=== PATIENT | female | born 1935 | race Caucasian/White ===

== ENCOUNTER 2017-08-29 22:11 | Inpatient (IN) | payer OTHER, MEDICAID ==
[~2017-08-29] VITALS: Ht 160 cm; Wt 57.6 kg
[~2017-08-29 22:11] MED LIST: A & D OINT45 GM TP; ALTACE5 MG PO; Atorvastatin Calcium PO; GLUCOTROL5 MG PO; MOTRIN800 MG PO; Metoprolol Tartrate PO; NORVASC5 MG PO; XARELTO20 MG PO
[2017-08-29 22:14] VITALS: BP 215/90
--- NOTE | 2017-08-29 22:19 | NUR ---
BIBA TO ER BED 7
--- NOTE | 2017-08-29 22:20 | NUR ---
82/F BIBA C/O RT ARM AND RT FACE NUMBNESS X 2 DAYS AGO AT (1600). MILD WEAKNESS NOTED TO PARKER PROFESSIONAL APPLICATION DESIGNER STRENGTH. PT AAO X1 TO NAME. PATIENT STATES PAIN OF 0/10 AT THIS TIME; VSS; PATIENT POSITIONED FOR COMFORT; HOB ELEVATED; BEDRAILS UP X2; BED DOWN. ER MD MADE AWARE OF PT STATUS.
--- NOTE | 2017-08-29 22:55 | NUR ---
PT TAKEN TO CT
--- NOTE | 2017-08-29 23:10 | NUR ---
BP 196/96, HR 81, PT AWAKE AND APPEARS COMFORTABLE. MD MADE AWARE OF HIGH BP
[2017-08-29] MEDS ORDERED: hydrALAZINE 20 MG/ML VIAL IVP ONE (23:25)
[2017-08-29] MEDS ORDERED: ENALAPRILAT 2.5 MG/2 ML VIAL IVP ONE (23:25)
[2017-08-29] MEDS ORDERED: ASPIRIN 81 MG TAB.CHEW PO ONE (23:40)
--- NOTE | 2017-08-29 23:45 | NUR ---
KAREN CARE PROVIDED. PT CLEANSED WITH WARM WATER AND NO RINSE CLEANSER. DRY VICKI PADS APPLIED UNDER PATIENT. PT TOLERATED WELL. WARM BLANKET PROVIDED. PT PLACED IN POSITION OF COMFORT. ALL NEEDS ADDRESSED.
--- NOTE | 2017-08-30 00:11 | NUR ---
BP 143/76, HR 86, MD MADE AWARE. PT AWAKE AND COMFORTABLE
--- NOTE | 2017-08-30 01:18 | NUR ---
VSS, PT AWAKE, ALERT AND COMFORTABLE. TRANSFERRED VIA GURNEY, Patient will be admitted to care of [facility]RE[facility]. Admited to . Will go to room. Belongings list completed. Report to CORNELIA MARTINEZ.
[2017-08-30 01:20] VITALS: BP 151/71
[2017-08-30] MEDS ORDERED: ACETAMINOPHEN 325 MG TAB PO PRN (01:20)
[2017-08-30] MEDS ORDERED: HYDROcodone/APAP 7.5/325 MG 1 TAB PO PRN (01:20)
[2017-08-30] MEDS ORDERED: MORPHINE SULFATE 2 MG/ML SYR IVP PRN (01:20)
[2017-08-30] MEDS ORDERED: DOCUSATE SODIUM 100 MG GELCAP PO PRN (01:20)
--- NOTE | 2017-08-30 01:20 | NUR ---
PATIENT ADMITTED TO THE UNIT FROM THE ER VIA GURNEY. PATIENT IS AWAKE, ALERT AND ORIENTED. NO SIGNS AND SYMPTOMS OF DISTRESS NOTED. NO COMPLAINTS OF PAIN AT THIS TIME. IV SITE NOTED ON LEFT AC, SALINE LOCKED. BED IN LOWEST POSITION, SIDE RAILS UP AND CALL LIGHT WITHIN REACH. WILL CONTINUE TO MONITOR
[2017-08-30] MEDS ORDERED: IBUPROFEN 800 MG TAB PO SCH (01:40)
--- NOTE | 2017-08-30 01:40 | NUR ---
PATIENT SEEN BY DR. KWON
[2017-08-30] MEDS ORDERED: METOPROLOL 25 MG TAB PO SCH (01:55)
[2017-08-30] MEDS: NACL 0.9% 1,000 ML IV SCH (02:18)
[2017-08-30 04:00] VITALS: BP 144/85
--- NOTE | 2017-08-30 04:50 | NUR ---
DR. KWON NOTIFIED OF PATIENT'S MAGNESIUM LEVEL OF 1.7, ORDERS RECEIVED.
[2017-08-30] MEDS ORDERED: MAG SULF 2000 MG/WATER PREMIX 50 ML IV SCH ×2 (06:00→09:00)
[2017-08-30] MEDS: glipiZIDE 5 MG TAB PO SCH (06:27)
--- NOTE | 2017-08-30 07:19 | NUR ---
PATIENT REPORT GIVEN AT BEDSIDE TO MORNING NURSE. PATIENT IS IN STABLE CONDITION
[2017-08-30] MEDS ORDERED: DEXTROSE 50% 50 ML SYR IVP PRN (07:20)
--- NOTE | 2017-08-30 07:20 | NUR ---
RECEIVED PT REPORT AT BEDSIDE FROM NIGHT NURSE. PATIENT IS AAOX2 AND SHOWS NO S/S OF ACUTE DISTRESS ON ROOM AIR. PT DENIES PAIN. PATIENT IV NOTED ON THE L AC WITH IVF'S INFUSING WELL. SKIN IS DRY AT BLE; OTHERWISE, SKIN IS INTACT. PATIENT ON TELE MONITOR. DISCUSSED WITH PT POC FOR TODAY HOWEVER PT NEEDS CONSTANT REINFORCEMENT ABOUT CARE. THE BED IS LOWERED WITH CALL LIGHT WITHIN REACH. FALL RISK PROTOCOL IS IN PLACE WITH SIGNS POSTED AND BED ALARM ACTIVATED.
[2017-08-30] MEDS: BLOOD GLUCOSE MONITORING 1 DEV DEV FS SCH ×4 (07:30→20:20)
[2017-08-30 07:43] VITALS: BP 134/72
--- NOTE | 2017-08-30 08:06 | NUR ---
SPOKE WITH DR BAUTISTA REGARDING ELEVATED TROPONIN. TO SEE PT.
[2017-08-30] MEDS ORDERED: hePARIN / DEXT 5% PREMIX 250 ML IV SCH (09:15)
[2017-08-30] MEDS ORDERED: HEPARIN PER PHARMACY MC PRN (09:15)
--- NOTE | 2017-08-30 10:00 | NUR ---
STUDENT NURSE ADMINISTERED SCHEDULED MEDICATIONS WITH INSTRUCTOR. PT TOLERATED ACTIVITY WELL. WILL CONTINUE TO MONITOR.
[2017-08-30] MEDS: RAMIPRIL 5 MG CAP PO SCH (10:02)
[2017-08-30] MEDS: amLODIPine 5 MG TAB PO SCH (10:04)
[2017-08-30] MEDS: METOPROLOL 25 MG TAB PO SCH ×2 (10:04→21:00)
[2017-08-30] MEDS: RIVAROXABAN 10 MG TAB PO SCH (10:08)
--- NOTE | 2017-08-30 10:15 | NUR ---
PT LUNCH WILL BE HELP FOR US PROCEDURE. PT IS AWARE AND VERBALIZED UNDERSTANDING.
[2017-08-30] MEDS: INSULIN LISPRO SLIDING SCALE 100 UNITS/ML VIAL SUBQ PRN ×2 (10:22→20:23)
--- NOTE | 2017-08-30 10:35 | NUR ---
NOTIFIED DR BAUTISTA OF PT HR OF 41. PT WAS SLEEPING AND SHOWS NO S/S OF ACUTE DISTRESS, DENIES PAIN, DENIES SOB. PT HR WENT UP TO 75 NOW.
--- NOTE | 2017-08-30 11:55 | NUR ---
PT IS SLEEPING AND SHOWS NO S/S OF ACUTE DISTRESS. BED IS IN LOW POSITION WITH CALL LIGHT WITHIN REACH. WILL CONTINUE TO MONITOR.
[2017-08-30 12:00] VITALS: BP 122/67
[2017-08-30] MEDS: VITAMIN A/VITAMIN D OINT 113 GM TUBE TP SCH (13:01)
[2017-08-30] MEDS: ONDANSETRON 4 MG/2 ML VIAL IM/IVP PRN (14:00)
--- NOTE | 2017-08-30 14:00 | NUR ---
PT C/O NAUSEA. ADMINISTERED ZOFRAN 4 MG IVP.
--- NOTE | 2017-08-30 14:50 | NUR ---
PT DENIES FEELING NAUSEOUS. PATIENT SHOWS NO S/S OF ACUTE DISTRESS ON ROOM AIR. BED IN LOW POSITION WITH CALL LIGHT WITHIN REACH. WILL CONTINUE TO MONITOR.
--- NOTE | 2017-08-30 15:30 | NUR ---
PT BLOOD SUGAR IS 62. GAVE PT APPLE JUICE. WILL REASSESS IN 15 MIN.
--- NOTE | 2017-08-30 15:45 | NUR ---
PT IS ASYMPTOMATIC, PT DENIES FEELING SHAKINESS, DIAPHORETIC, TACHYCARDIC. BS IS NOW 82. US WAS CALLED TO SEE WHEN THEY WILL ARRIVE SO PT CAN BEGIN TO EAT. US STATED THEY WILL COME IN 30 MIN.
[2017-08-30 16:00] VITALS: BP 126/67
--- NOTE | 2017-08-30 16:35 | NUR ---
PT IS BEING SEEN BY [employer] TECH. PT SHOWS NO S/S OF ACUTE DISTRESS ON ROOM AIR. WILL CONTINUE TO MONITOR.
--- NOTE | 2017-08-30 17:40 | NUR ---
PT IS SITTING UP AND EATING DINNER. PT SHOWS NO S/S OF ACUTE DISTRESS ON ROOM AIR. PT DENIES PAIN AND SOB. PT TOLERATING MECHANICAL SOFT DIET WELL.
--- NOTE | 2017-08-30 19:10 | NUR ---
GAVE REPORT TO NIGHT NURSE AT BEDSIDE. PT IS AAOX2 AND SHOWS NO S/S OF ACUTE DISTRESS ON ROOM AIR. PT DENIES PAIN AND SOB. PT ENDORSED IN STABLE CONDITION.
--- NOTE | 2017-08-30 19:17 | NUR ---
PATIENT REPORT RECEIVED FROM MORNING NURSE. PATIENT IS SITTING UP IN BED, RESTING COMFORTABLY. NO SIGNS AND SYMPTOMS OF DISTRESS NOTED. NO COMPLAINTS OF PAIN AT THIS TIME. IV SITE NOTED ON LEFT AC, IVF INFUSING WELL. BED IN MORALES'S POSITION, SIDE RAILS UP AND CALL LIGHT WITHIN REACH. WILL CONTINUE TO MONITOR.
[2017-08-30 20:00] VITALS: BP 111/45
[2017-08-30] MEDS: ATORVASTATIN 20 MG TAB PO SCH (20:26)
--- NOTE | 2017-08-30 20:30 | NUR ---
CHECKED ON PATIENT, PATIENT IS ASLEEP IN BED. EASY TO AROUSE. NO SIGNS AND SYMPTOMS OF DISTRESS NOTED. WILL CONTINUE TO MONITOR.
--- NOTE | 2017-08-30 21:00 | NUR ---
NOTIFIED DR. KWON OF PATIENT'S HEART RHYTHM STRIPS AND BRADYCARDIA
[2017-08-31] VITALS: BP 123/50
--- NOTE | 2017-08-31 | NUR ---
CHECKED ON PATIENT, PATIENT IS ASLEEP. NO SIGNS AND SYMPTOMS OF DISTRESS NOTED. BED IN LOWEST POSITION, SIDE RAILS UP AND CALL LIGHT WITHIN REACH. WILL CONTINUE TO MONITOR.
[2017-08-31] MEDS: VITAMIN A/VITAMIN D OINT 113 GM TUBE TP SCH ×2 (00:33→13:01)
[2017-08-31] MEDS: NACL 0.9% 1,000 ML IV SCH (00:55)
[2017-08-31 04:00] VITALS: BP 134/57
[2017-08-31] MEDS: glipiZIDE 5 MG TAB PO SCH (05:50)
[2017-08-31] MEDS: BLOOD GLUCOSE MONITORING 1 DEV DEV FS SCH ×4 (06:37→20:28)
--- NOTE | 2017-08-31 07:28 | NUR ---
PATIENT REPORT GIVEN TO MORNING NURSE AT BEDSIDE. PATIENT IN STABLE CONDITION.
--- NOTE | 2017-08-31 07:30 | NUR ---
RECEIVED REPORT FROM BLACKSMITH FARM NURSE, PT IS RESTING IN BED IN SEMI FOWLERS POSITION, PT IS A/OX3, PT IS ON BEDREST, AMBULATES WITH ASSIST, IV IS ON THE LT AC, PATENT, INTACT, FLUSHING WELL, NO S/S OF RESPIRATORY DISTRESS OR DISCOMFORT NOTED, DISCUSSED PLAN OF CARE WITH PT, PT VERBALIZED UNDERSTANDING, SAFETY/FALL PRECAUTIONS ARE IN PLACE, CALL LIGHT IS WITHIN REACH, WILL CONTINUE TO MONITOR.
[2017-08-31 08:00] VITALS: BP 158/68
--- NOTE | 2017-08-31 08:46 | NUR ---
PATIENT HAS BEEN SCREENED AND CATEGORIZED MODERATE NUTRITION RISK. PATIENT WILL BE SEEN WITHIN 3-5 DAYS OF ADMISSION. 09/01/17-09/03/[address]
[2017-08-31] MEDS: amLODIPine 5 MG TAB PO SCH (09:13)
[2017-08-31] MEDS: METOPROLOL 25 MG TAB PO SCH ×2 (09:14→20:31)
[2017-08-31] MEDS: RAMIPRIL 5 MG CAP PO SCH (09:14)
--- NOTE | 2017-08-31 09:15 | NUR ---
DUE MEDICATIONS GIVEN, PT TOLERATED WELL, PATIENT'S DAUGHTER (NELLY) IS AT BEDSIDE, CALL LIGHT WITHIN REACH.
[2017-08-31] MEDS: RIVAROXABAN 10 MG TAB PO SCH (09:19)
--- NOTE | 2017-08-31 11:45 | NUR ---
PICK PULLING MACHINE OPERATOR IS AT PATIENT'S BEDSIDE AT THIS TIME.
[2017-08-31 12:00] VITALS: BP 160/67
--- NOTE | 2017-08-31 12:25 | NUR ---
1130 MET WITH PT AT BEDSIDE WITH DAUGHTERS NELLY AND STEVE PRESENT. PER NELLY PT LIVES WITH HER SON RENU IN A RENTED GARAGE. NELLY AND STEVE STATED THAT THEY PLAN ON FINDING PT ANOTHER PLACE TO LIVE THE LIVING CONDITIONS ARE VERY POOR. STATED THAT PT DOES NOT HAVE ADEQUATE TOILET AND WHEN TOILET FLUSHED THE FLOOR GETS WET AND ALSO SHE DOES NOT HAVE ACCESS TO A CLEAN KITCHEN AREA. NELLY SHOWED PHOTOGRAPHS SHE HAS TAKEN OF THE LIVING AREA AND THE PLACE APPEARED CLUTTERED AND UNCLEAN. STATED THAT PT DOES GET $880.0 SSI MONTHLY. STATES THAT RENU IS PTS CAREGIVER BUT THEY HAVE FOUND THAT PT HAS NOT BEEN GETTING HER MEDICATIONS. INQUIRED WHO PTS PCP WAS AND SHE STATED THAT CURRENTLY PT DOES NOT HAVE ONE HER PCP RECENTLY RETIRED. OFFERED TO PROVIDE A LIST BUT STEVE STATED THAT SHE IS PLANNING ON TAKING PT TO HER OWN PHYSICIAN. PT ALSO HAS DIFFICULTY WITH TRANSPORTATION. ALSO DISCUSSED WITH BOTH DAUGHTERS THAT THEY MAY CONSIDER HAVING PT COMPLETE AN AD AND THEY STATED THEY DO HAVE THE FORM THAT WAS PROVIDED TO THEM ON ADMISSION AND THEY ARE GOING TO REVIEW AND DISCUSS A FAMILY AND URGE PT TO COMPLETE THE FORM. DISCUSSED WITH THEM PT'S NEEDS ON DISCHARGE SNF VS HH. DID PROVIDE NELLY WITH A COPY OF THE HH RESOURCE LIST. PROVED THEM BOTH WITH DCM CONTACT INFORMATION IF THEY HAVE ANY FURTHER QUESTIONS.
--- NOTE | 2017-08-31 14:27 | NUR ---
PHYSICAL THERAPY WORKING WITH PT AT THIS TIME.
[2017-08-31 16:00] VITALS: BP 113/54
--- NOTE | 2017-08-31 16:30 | NUR ---
PT IS RESTING IN BED USING HIS DVD PLAYER, KORINA HUTCHINS WITHIN REACH. Addendum: 08/31/17 at 1823 by Nirali Moses RN WRONG PT ENTRY.
--- NOTE | 2017-08-31 19:20 | NUR ---
ENDORSED PT TO PRE SALES SYSTEMS ENGINEER NURSE FOR CONTINUITY OF CARE, PT STABLE AT THIS TIME.
--- NOTE | 2017-08-31 19:21 | NUR ---
RECEIVED REPORT FROM AM NURSE. PT IS AOX3, WITH FAMILY AT BEDSIDE. WITH RESPIRATIONS CLEAR AND UNLABORED. NO COMPLAINTS OF PAIN AT THIS TIME. WITH AN IV ON THE LEFT AC 22 G, INTACT AND PATENT. SKIN IS INTACT. INITIAL ASSESSMENT DONE. REORIENTED PT TO THE UNIT, VERBALIZED UNDERSTANDING. WILL CONTINUE TO MONITOR. ALL NEEDS ATTENDED. CALL LIGHT WITHIN REACH. SAFETY CHECKS IN PLACE.
[2017-08-31 20:00] VITALS: BP 158/77
--- NOTE | 2017-08-31 20:28 | NUR ---
DUE MEDS GIVEN, WELL TOLERATED BY PATIENT. WILL CONTINUE TO MONITOR FOR ANY CHANGES.
[2017-08-31] MEDS: ATORVASTATIN 20 MG TAB PO SCH (20:31)
[2017-08-31] MEDS: INSULIN LISPRO SLIDING SCALE 100 UNITS/ML VIAL SUBQ PRN (20:33)
[2017-09-01] VITALS: BP 141/63
--- NOTE | 2017-09-01 | NUR ---
VITAL SIGNS STABLE. NO S/S OF DISTRESS. NO COMPLAINTS OF PAIN. WILL CONTINUE TO MONITOR FOR ANY CHANGES.
[2017-09-01] MEDS: NACL 0.9% 1,000 ML IV SCH ×2 (00:34→08:59)
[2017-09-01] MEDS: VITAMIN A/VITAMIN D OINT 113 GM TUBE TP SCH ×2 (01:03→13:06)
[2017-09-01 04:00] VITALS: BP 128/69
--- NOTE | 2017-09-01 04:00 | NUR ---
VITAL SIGNS STABLE. NO COMPLAINTS OF PAIN. NO S/S OF DISTRESS. WILL CONTINUE TO MONITOR FOR ANY CHANGES.
[2017-09-01] MEDS: glipiZIDE 5 MG TAB PO SCH (05:36)
--- NOTE | 2017-09-01 05:39 | NUR ---
DID NOT GIVE 0630 MEDICATION DUE TO THE BLOOD SUGAR OF 102. WILL CONTINUE TO MONITOR FOR CHANGES.
[2017-09-01] MEDS: BLOOD GLUCOSE MONITORING 1 DEV DEV FS SCH ×4 (07:01→21:27)
--- NOTE | 2017-09-01 07:20 | NUR ---
ENDORSED TO AM SHIFT NURSE FOR CONTINUITY OF CARE, IN STABLE CONDITION.
--- NOTE | 2017-09-01 07:25 | NUR ---
RECEIVED PT REPORT AT BEDSIDE, PT ASLEEP BUT EASILY AROUSABLE, NO S/S OF DISTRESS NOTED. PT ON TELE MONITORING. BED LOWERED, HEAD ELEVATED, CALL LIGHT WITHIN REACH. WILL CONTINUE TO MONITOR.
[2017-09-01 08:00] VITALS: BP 154/77
[2017-09-01] MEDS: RAMIPRIL 5 MG CAP PO SCH (08:53)
[2017-09-01] MEDS: amLODIPine 5 MG TAB PO SCH (08:54)
[2017-09-01] MEDS: RIVAROXABAN 10 MG TAB PO SCH (08:55)
[2017-09-01] MEDS: METOPROLOL 25 MG TAB PO SCH ×2 (08:55→21:24)
--- NOTE | 2017-09-01 14:31 | NUR ---
[facility] Patient will go to room 21-A and the number to call report [phone] and for transportation to use [facility] and to inform [facility] to [facility] per Michelle. Will be anticipating discharge tomorrow. 09/02/17. Dr. Gray will be the doctor to follow.
--- NOTE | 2017-09-01 15:30 | NUR ---
PHYSICAL THERAPY CO-SIGN The Physical Therapy Progress Notes documented by Cyber Forensics Analyst have been reviewed. Reviewed/Co-Signed by: Kelsie Luu PT Documentation Done by:GIN MARSH SURFACE WATER MANAGER POC REVIEWED W/ SURFACE WATER MANAGER; TRY STAIR MGMT NEXT TX IF ABLE. Addendum: 09/01/17 at 1531 by Kelsie Luu PT Amended: Links added.
[2017-09-01 16:00] VITALS: BP 136/74
--- NOTE | 2017-09-01 19:28 | NUR ---
PT REPORT GIVEN AT BEDSIDE. PT ENDORSED TO THE NEXT SHIFT. PT IN STABLE CONDITION.
--- NOTE | 2017-09-01 19:29 | NUR ---
RECEIVED HANDOFF REPORT FROM AM RN. PATIENT AWAKE IN BED. PATIENT A&OX3. PATIENT DENIES PAIN. IV SITE PATENT AND INTACT. NO SIGNS OR SYMPTOMS OF ACUTE DISTRESS NOTED. CALL LIGHT WITHIN REACH. WILL CONTINUE TO MONITOR.
[2017-09-01 20:04] VITALS: BP 154/72
[2017-09-01] MEDS: ATORVASTATIN 20 MG TAB PO SCH (21:24)
--- NOTE | 2017-09-01 21:45 | NUR ---
PATIENT AWAKE IN BED WATCHING TV. PATIENT DENIES PAIN. NO SIGNS OR SYMPTOMS OF ACUTE DISTRESS NOTED. CALL LIGHT WITHIN REACH. WILL CONTINUE TO MONITOR.
--- NOTE | 2017-09-02 00:07 | NUR ---
PATIENT AWAKE IN BED WATCHING TV. PATIENT ANNA PAIN. NO SIGNS OR SYMPTOMS OF ACUTE DISTRESS NOTED. CALL LIGHT WITHIN REACH. WILL CONTINUE TO MONITOR.
[2017-09-02] MEDS: VITAMIN A/VITAMIN D OINT 113 GM TUBE TP SCH ×2 (01:10→11:34)
--- NOTE | 2017-09-02 02:42 | NUR ---
PATIENT RESTING. NO SIGNS OR SYMPTOMS OF ACUTE DISTRESS NOTED. CALL LIGHT WITHIN REACH. WILL CONTINUE TO MONITOR.
--- NOTE | 2017-09-02 04:59 | NUR ---
PATIENT RESTING IN BED. CHANGED BED LINENS AND CLEANED UP PATIENT DUE TO INCONTINENCE. PATIENT DENIES PAIN. NO SIGNS OR SYMPTOMS OF ACUTE DISTRESS NOTED. CALL LIGHT WITHIN REACH. WILL CONTINUE TO MONITOR.
[2017-09-02] MEDS: BLOOD GLUCOSE MONITORING 1 DEV DEV FS SCH ×4 (06:50→21:25)
[2017-09-02] MEDS: glipiZIDE 5 MG TAB PO SCH (06:51)
--- NOTE | 2017-09-02 07:18 | NUR ---
ENDORSED PLAN OF CARE TO AM RN. PATIENT IN STABLE CONDITION. NO SIGNS OR SYMPTOMS OF ACUTE DISTRESS NOTED. SAFETY MEASURES ENSURED. CALL LIGHT WITHIN REACH.
--- NOTE | 2017-09-02 07:20 | NUR ---
RECEIVED PT REPORT AT BEDSIDE, PT IS AWAKE AND ALERT. NO S/S OF DISTRESS NOTED. BED LOWERED, HEAD ELEVATED, CALL LIGHT WITHIN REACH. WILL CONTINUE TO MONITOR.
[2017-09-02 08:00] VITALS: BP 186/76
[2017-09-02] MEDS: RAMIPRIL 5 MG CAP PO SCH (08:25)
[2017-09-02] MEDS: RIVAROXABAN 10 MG TAB PO SCH (08:26)
[2017-09-02] MEDS: METOPROLOL 25 MG TAB PO SCH ×2 (08:26→21:26)
[2017-09-02] MEDS: amLODIPine 5 MG TAB PO SCH (08:27)
[2017-09-02 09:00] VITALS: BP 145/77
--- NOTE | 2017-09-02 09:00 | NUR ---
BP REASSESSED. BP 145/77. NO S/S OF DISTRESS NOTED. PT DENIES PAIN.
--- NOTE | 2017-09-02 11:45 | NUR ---
BLOOD SUGAR 55. PATIENT AWAKE AND ALERT. PATIENT IS ASYMPTOMATIC. D50 GIVEN PER PROTOCOL. NOTIFIED DR GTZ. WILL CONTINUE TO MONITOR
--- NOTE | 2017-09-02 12:15 | NUR ---
BLOOD SUGAR RECHECKED. BLOOD SUGAR 190
--- NOTE | 2017-09-02 12:30 | NUR ---
ENTRY FOR 09/01/17 SPOKE WITH DAUGHTER NELLY AND INFORMED HER THAT PT AND PHYSICIAN ARE RECOMMENDING SNF FOR SHORT TERM REHAB PRIOR TO GOING HOME. PER PT SHE IS IN AGREEMENT. PER NELLY SHE AND HER SISTER STEVE ARE ALSO IN AGREEMENT AND REQUEST A SNF IN THE [place]. PROVIDED HER WITH TWO SNFS IN [facility] AND [facility]. PER STEVE SHE WOULD PREFER [facility] IT IS CLOSER TO HER HOME. PROVIDED HER WITH THE ADDRESS AND ENCOURAGED HER TO TOUR FACILITY.
--- NOTE | 2017-09-02 12:46 | NUR ---
0950 RECEIVED VM FROM STEVE PT'S DAUGHTER STATING THAT SHE TOURED [facility] AND REALLY LIKED THE FACILITY AND THEY ARE IN AGREEMENT WITH THE TRANSFER. PER DORIAN PT WILL GO TO ROOM 21A INFORMED HER MOST LIKELY TRANSFER WILL BE TOMORROW PER PHYSICIAN.
--- NOTE | 2017-09-02 14:08 | NUR ---
09/02/17 RD INITIAL ASSESSMENT COMPLETED PLEASE REFER TO NUTRITION ASSESSMENT UNDER CARE ACTIVITY FOR ESTIMATED NUTRITIONAL NEEDS. 1. CONTINUE 60G CONSISTENT CARBOHDYRATE, MECHANICAL SOFT DIET 2. CONTINUE TO ENCOURAGE INCREASED PO INTAKE TO TOLERANCE 3. PROVIDE NUTRITION THERAPY EDUCATION NEEDED 4. RD TO FOLLOW-UP 3-5 DAYS, MODERATE RISK ALLAN RAPHAEL RD
[2017-09-02 16:00] VITALS: BP 179/85
--- NOTE | 2017-09-02 17:00 | NUR ---
SPOKE WITH PATIENT'S SON RENU AND WAS TOLD THAT THEY DO NOT AGREE WITH THE PLAN FOR THE PATIENT TO BE TRANSFERRED TO A DIFFERENT FACILITY FOR REHAB. MADE DR GTZ AWARE
--- NOTE | 2017-09-02 17:50 | NUR ---
MADE DR GTZ AWARE OF PATIENT'S BP
[2017-09-02] MEDS ORDERED: amLODIPine 5 MG TAB PO ONE (18:30)
--- NOTE | 2017-09-02 19:17 | NUR ---
ENDORSED PLAN OF CARE TO PM SHIFT. PT REPORT GIVEN AT BEDSIDE. PATIENT IN STABLE CONDITION. NO S/S OF ACUTE DISTRESS NOTED. CALL LIGHT WITHIN REACH.
--- NOTE | 2017-09-02 19:18 | NUR ---
RECEIVED HANDOFF REPORT FROM AM RN. PATIENT AWAKE AND ALERT IN BED TALKING TO FAMILY ON THE PHONE, A&OX3. PATIENT DENIES PAIN. IV SITE PATENT AND INTACT. NO SIGNS OR SYMPTOMS OF ACUTE DISTRESS NOTED. CALL LIGHT WITHIN REACH. WILL CONTINUE TO MONITOR.
[2017-09-02] MEDS: ATORVASTATIN 20 MG TAB PO SCH (21:26)
--- NOTE | 2017-09-02 21:44 | NUR ---
PATIENT AWAKE AND ALERT IN BED. PATIENT REFUSED TO TAKE PM MEDS. EDUCATION PROVIDED. PATIENT DENIES PAIN. NO SIGNS OR SYMPTOMS OF ACUTE DISTRESS NOTED. CALL LIGHT WITHIN REACH. WILL CONTINUE TO MONITOR.
--- NOTE | 2017-09-02 22:48 | NUR ---
PATIENT REPORTS "I THINK IM GOING TO HAVE A HEART ATTACK". VITAL SIGNS TAKEN, BP 167/91, HR 95, O2 100, RR 18 NON LABORED. PATIENT REPORTS CHEST PAIN BUT REFUSES CLARIFICATION OF RADIATION AND SEVERITY. TELE BOX IN PLACE. RESIDENT AWARE. CALLED PATIENTS SON AFTER PATIENT STATED WANTING TO SPEAK WITH HIM. CALL LIGHT WITHIN REACH. WILL CONTINUE TO MONITOR.
--- NOTE | 2017-09-02 23:25 | NUR ---
PATIENT RESTING IN BED. PATIENT DENIES CHEST PAIN. TELE BOX IN PLACE. NO SIGNS OR SYMPTOMS OF ACUTE DISTRESS NOTED. CALL LIGHT WITHIN REACH. WILL CONTINUE TO MONITOR.
[2017-09-03] VITALS: BP 146/82
[2017-09-03] MEDS: VITAMIN A/VITAMIN D OINT 113 GM TUBE TP SCH ×2 (00:08→11:21)
[2017-09-03] MEDS: NACL 0.9% 1,000 ML IV SCH (00:34)
--- NOTE | 2017-09-03 01:42 | NUR ---
PATIENT RESTING IN BED. PATIENT DENIES PAIN. NO SIGNS OR SYMPTOMS OF ACUTE DISTRESS NOTED. CALL LIGHT WITHIN REACH. WILL CONTINUE TO MONITOR.
--- NOTE | 2017-09-03 04:39 | NUR ---
PATIENT ON TELE. SHOWS SR/PAC'S WITH POSSIBLE 2ND DEGREE HEART BLOCK. MD AWARE. EKG ORDERED. PATIENT RESTING IN BED. NO SIGNS OR SYMPTOMS OF ACUTE DISTRESS NOTED. PATIENT DENIES PAIN. CALL LIGHT WITHIN REACH. WILL CONTINUE TO MONITOR.
[2017-09-03] MEDS: glipiZIDE 5 MG TAB PO SCH (06:02)
--- NOTE | 2017-09-03 06:04 | NUR ---
PATIENT REFUSED TO TAKE AM MEDICATION. STATES "MY DAUGHTER SAID NOT TO PUT ANYTHING IN MY MOUTH UNTIL SHE GETS HERE". PATIENT A&OX2. PATIENT DENIES PAIN. NO SIGNS OR SYMPTOMS OF ACUTE DISTRESS NOTED. CALL LIGHT WITHIN REACH. WILL CONTINUE TO MONITOR.
[2017-09-03] MEDS: BLOOD GLUCOSE MONITORING 1 DEV DEV FS SCH ×4 (06:46→21:30)
[2017-09-03] MEDS ORDERED: hydrALAZINE 20 MG/ML VIAL IVP PRN (07:30)
--- NOTE | 2017-09-03 07:36 | NUR ---
ENDORSED PLAN OF CARE TO AM RN. PATIENT IN STABLE CONDITION. PATIENT DENIES PAIN. NO SIGNS OR SYMPTOMS OF ACUTE DISTRESS NOTED. SAFETY MEASURES ENSURED. CALL LIGHT WITHIN REACH.
--- NOTE | 2017-09-03 07:37 | NUR ---
RECEIVED BEDSIDE REPORT FROM BUSINESS EXCELLENCE MANAGER RN. PT AWAKE AND ALERT, NO SIGNS OF ACUTE DISTRESS. BOWEL SOUNDS ACTIVE IN ALL 4 QUADRANTS. SKIN INTACT. IV PATENT AND ASYMPTOMATIC. BEDREST. PT ON ROOM AIR. PT DENIES PAIN. RE-ORIENTED TO HOSPITAL AND TO UNIT, PT VERBALIZES UNDERSTANDING, HOWEVER UNABLE TO RETURN INSTRUCTIONS. BED IN LOW POSITION WITH BILATERAL HALF SIDE RAILS UP, BED ALARM ON, CALL LIGHT WITHIN REACH. WILL CONTINUE TO MONITOR.
[2017-09-03 08:00] VITALS: BP 208/98
--- NOTE | 2017-09-03 08:00 | NUR ---
PATIENT BLOOD PRESSURE 208/98 AND PULSE 65. REPORTED TO DR HUBER, RECEIVED NEW ORDERS. NOTED, WILL CARRY OUT.
--- NOTE | 2017-09-03 08:30 | NUR ---
PT REFUSING TO TAKE ALL MEDICATIONS PATIENT STATED THAT DAUGHTER TOLD HER NOT TO TAKE ANYTHING. CALLED PT DAUGHTER WHO SPOKE WITH HER MOTHER ON THE PHONE, PATIENT AGREED TO TAKING ALL MORNING MEDICATIONS.
[2017-09-03] MEDS: amLODIPine 5 MG TAB PO SCH (08:42)
[2017-09-03] MEDS: RAMIPRIL 5 MG CAP PO SCH (08:43)
[2017-09-03] MEDS: METOPROLOL 25 MG TAB PO SCH ×2 (08:43→21:19)
[2017-09-03] MEDS: RIVAROXABAN 10 MG TAB PO SCH (08:53)
[2017-09-03] MEDS ORDERED: AMLODIPINE BESYL5 M1 PO (09:08)
[2017-09-03] MEDS ORDERED: LOPRESSOR25 MG PO (09:08)
--- NOTE | 2017-09-03 09:42 | NUR ---
PATIENT VITAL SIGNS 161/87 AND PULSE 106. WILL CONTINUE TO MONITOR.
--- NOTE | 2017-09-03 09:45 | NUR ---
PATIENT DAUGHTER AND SON AT BEDSIDE ARGUING. SON WANTED TO TAKE MOTHER HOME HOWEVER DAUGHTER WANTED HER TO DISCHARGE TO REHAB FACILITY THAT SVETLANA, FINANCE CONTROLLER SPOKE TO HER ABOUT. INFORMED MIRANDA BRAVO RN, AND SVETLANA. AFTER SPEAKING WITH FAMILY AND PATIENT, PATIENT DECIDED TO STAY UNTIL TRANSFERRED TO REHAB FACILITY. WILL CONTINUE TO MONITOR.
[2017-09-03 10:00] VITALS: BP 152/87
--- NOTE | 2017-09-03 10:00 | NUR ---
PATIENT VITAL SIGNS 152/87, PULSE 104, RESPIRATIONS 18, 0/10 PAIN AND TEMPERATURE 101.9. APPLIED ICE PACKS AND REMOVED BLANKETS. WILL ADMINISTER TYLENOL AND RE-ASSESS. DR GTZ MADE AWARE.
[2017-09-03] MEDS ORDERED: ACETAMINOPHEN325 M2 PO (10:21)
--- NOTE | 2017-09-03 11:10 | NUR ---
PT NOTE 800 CHART REVIEWED. PER RN, Pt's BP IS HIGH AND WILL MEDICATE Pt; WILL CHECK ON Pt LATER FOR PT TX. 1000 CHECKED BP 152/87, HR 104 BUT TEMP 101.9; RN TO APPLY ICE AND MEDICATE Pt. 1100 Pt HAS BEEN MEDICATED BY RN WITH TYLENOL BUT STILL HAS FEVER; HOLD PT TX FOR TODAY PER RN. PVE(2)
--- NOTE | 2017-09-03 11:18 | NUR ---
PATIENT BLOOD PRESSURE 141/73, PULSE 98, TEMPERATURE 100.1, OXYGEN SATURATION 98%, RESPIRATIONS 18, PATIENT DENIES PAIN. COOLING MEASURES INCLUDING ICE PACKS ARE IN PLACE. PATIENT GIVEN TYLENOL APPROXIMATELY 1 HOUR AGO, WILL CONTINUE TO MONITOR.
--- NOTE | 2017-09-03 11:22 | NUR ---
RECEIVED DISCHARGE ORDER FROM DR GTZ, NOTED, WILL CARRY OUT.
--- NOTE | 2017-09-03 11:29 | NUR ---
CM NOTE PATIENT TO BE PICKED UP BY [facility] VIA WHEELCHAIR GOING TO [facility], RM 21A. ETA 1500.
[2017-09-03 12:00] VITALS: BP 126/70
[2017-09-03] MEDS: INSULIN LISPRO SLIDING SCALE 100 UNITS/ML VIAL SUBQ PRN ×3 (12:27→21:29)
--- NOTE | 2017-09-03 13:30 | NUR ---
PATIENT BLOOD PRESSURE 109/56, PULSE 74, OXYGEN SATURATION 97%, RESPIRATIONS 18, DENIES PAIN, TEMPERATURE 99.0. DR GTZ MADE AWARE. PUT NEW ICE PACKS ON PATIENT. WILL CONTINUE TO MONITOR.
--- NOTE | 2017-09-03 14:00 | NUR ---
DISCHARGE ORDER CANCELLED BY DR GTZ, NOTED.
--- NOTE | 2017-09-03 15:24 | NUR ---
RECEIVED NEW ORDERS FOR AM LABS FROM DR GTZ, NOTED, WILL CARRY OUT.
[2017-09-03 16:00] VITALS: BP 108/64
--- NOTE | 2017-09-03 17:30 | NUR ---
PT UPRIGHT IN BED RESTING, NO SIGNS OF ACUTE DISTRESS. PT GRANDSON AT BEDSIDE. BED IN LOW POSITION, BED ALARM ON, BILATERAL HALF SIDE RAILS UP, CALL LIGHT WITHIN REACH. WILL CONTINUE TO MONITOR.
--- NOTE | 2017-09-03 19:05 | NUR ---
PT AWAKE AND ALERT, NO SIGNS OF ACUTE DISTRESS. ENDORSED TO TRAINING GENERALIST NURSE FOR CONTINUITY OF CARE.
--- NOTE | 2017-09-03 19:30 | NUR ---
RECEIVED REPORT FROM DAY RN AT BEDSIDE, PATIENT IS AAOX2, FORGETFUL. ON ROOM AIR, NO SOB OR SIGN OF DISTRESS. IV TO LEFT AC PATENT AND INTACT, SKIN INTACT. PATIENT DENIES PAIN AT THIS TIME. DISCUSSED PLAN OF CARE WITH PATIENT, PATIENT VERBALIZED UNDERSTANDING. SAFETY MEASURES CHECKED, BED ALARM ON. CALL LIGHT WITHIN REACH. WILL CONTINUE TO MONITOR.
[2017-09-03 20:00] VITALS: BP 156/83
[2017-09-03] MEDS: ATORVASTATIN 20 MG TAB PO SCH (21:19)
--- NOTE | 2017-09-03 21:30 | NUR ---
PM MEDS ADMINISTERED, PATIENT TOLERATED WELL , RESTING IN BED, CALL LIGHT WITHIN REACH. WILL CONTINUE TO MONITOR
--- NOTE | 2017-09-03 22:50 | NUR ---
PATIENT RESTING IN BED, NO DISTRESS NOTED CALL LIGHT WITHIN REACH. WILL CONTINUE TO MONITOR
[2017-09-04] VITALS: BP 135/74
--- NOTE | 2017-09-04 00:04 | NUR ---
VITAL SIGNS STABLE, NO DISTRESS NOTED, CALL LIGHT WITHIN REACH. WILL CONTINUE TO MONITOR
[2017-09-04] MEDS: NACL 0.9% 1,000 ML IV SCH (00:34)
[2017-09-04] MEDS: VITAMIN A/VITAMIN D OINT 113 GM TUBE TP SCH ×2 (01:14→13:47)
--- NOTE | 2017-09-04 02:50 | NUR ---
PATIENT SLEEPING, NO DISTRESS, CALL LIGHT WITHIN REACH. WILL CONTINUE TO MONITOR
[2017-09-04 04:00] VITALS: BP 127/57
--- NOTE | 2017-09-04 04:15 | NUR ---
VITAL SIGNS STABLE, NO DISTRESS NOTED, CALL LIGHT WITHIN REACH. WILL CONTINUE TO MONITOR
[2017-09-04] MEDS: BLOOD GLUCOSE MONITORING 1 DEV DEV FS SCH ×4 (06:12→21:00)
[2017-09-04] MEDS: glipiZIDE 5 MG TAB PO SCH (06:12)
--- NOTE | 2017-09-04 07:24 | NUR ---
ENDORSED PATIENT TO DAY RN AT BEDSIDE, PATIENT IN STABLE CONDITION
--- NOTE | 2017-09-04 07:25 | NUR ---
RECEIVED REPORT FROM CAREGIVER ASSISTED LIVING NURSE PT IS RESTING IN BED, A/OX2, BEDREST, IV ON THE LEFT AC, PATENT, INTACT, FLUSHING WELL, PT IS ON ROOM AIR, NO S/S OF RESPIRATORY DISTRESS OR DISCOMFORT NOTED, DISCUSSED PLAN OF CARE WITH PT, PT VERBALIZED UNDERSTANDING, SAFETY/FALL PRECAUTIONS ARE IN PLACE, CALL LIGHT IS WITHIN REACH, WILL CONTINUE TO MONITOR.
[2017-09-04 08:00] VITALS: BP 123/56
[2017-09-04] MEDS: METOPROLOL 25 MG TAB PO SCH ×2 (08:52→21:00)
[2017-09-04] MEDS: RAMIPRIL 5 MG CAP PO SCH (08:52)
[2017-09-04] MEDS: amLODIPine 5 MG TAB PO SCH (08:52)
[2017-09-04] MEDS: RIVAROXABAN 10 MG TAB PO SCH (08:53)
[2017-09-04] MEDS: ONDANSETRON 4 MG/2 ML VIAL IM/IVP PRN (10:48)
--- NOTE | 2017-09-04 11:20 | NUR ---
PHYSICAL THERAPY IS WORKING WITH PT AT THIS TIME.
[2017-09-04 12:00] VITALS: BP 103/43
--- NOTE | 2017-09-04 13:38 | NUR ---
SPOKE WITH DORIAN FROM [facility]. SHE SAID THIS PATIENT CAN GO TO ROOM 21A UNDER DR. MORA AND [facility] WILL PAY FOR [facility]. I CALLED [facility] AND SET UP TIME FOR 6:30P.M. PHONE FOR [facility] [phone]. CARA MARTINEZINSURANCE PROFESSIONAL NURSE AWARE.
--- NOTE | 2017-09-04 15:00 | NUR ---
PATIENT'S SON RENU CALLED FOR UPDATE, HE WAS NOTIFIED BY CHARGE NURSE THE PATIENT WOULD BE TRANSFERRING TO [facility], I ALSO CALLED THE PATIENT'S DAUGHTER ALIZA, I REACHED HER VOICEMAIL I LET HER KNOW I WAS CALLING FROM [facility] TO LET HER KNOW SHE WAS BEING TRANSFERRED TO [facility] AT 1830.
--- NOTE | 2017-09-04 15:25 | NUR ---
CALLED [facility] AND GAVE REPORT TO MICHELLE SANDOVAL.
[2017-09-04] MEDS ORDERED: XARELTO15 MG PO (15:27)
[2017-09-04 16:00] VITALS: BP 100/51
--- NOTE | 2017-09-04 17:00 | NUR ---
HERE TO LASTING ROOM MACHINE OPERATOR THE PATIENT, PATIENT REFUSING TO LEAVE TO FACILITY, I CALLED THE PATIENT'S SON (RENU) I LET HIM KNOW THE PATIENT WAS REFUSING TO LEAVE, RENU STATED HE WAS GOING TO CALL HIS SISTER MAXWELL RIGGS , TO HAVE PICK HER UP. RENU SAID HE WAS IN [place]. Addendum: 09/04/17 at 2040 by Nirali Moses RN WAS HERE TO PICK PT AT 1900, NOT 1700
--- NOTE | 2017-09-04 19:00 | NUR ---
PREMIER HERE TO BIGHT MAKER THE PATIENT, PATIENT REFUSING TO LEAVE TO FACILITY, I CALLED THE PATIENT'S SON (RENU) I LET HIM KNOW THE PATIENT WAS REFUSING TO LEAVE, RENU STATED HE WAS GOING TO CALL HIS SISTER MAXWELL RIGGS , TO HAVE PICK HER UP. RENU SAID HE WAS IN [place].
--- NOTE | 2017-09-04 19:40 | NUR ---
CALLED [employer] [facility]UC[facility] AND EXPLAINED THE PATIENT WAS REFUSING TO LEAVE AND WAS BEING COMBATIVE, PER [employer], IF THE PT DID NOT WANT TO BE TRANSFERRED TO THE FACILITY, FAMILY WAS NEED TO COME AND .NET PROGRAMMER THE PATIENT TO TAKE HER HOME.
--- NOTE | 2017-09-04 19:45 | NUR ---
DR. BRASHER IN PATIENT'S ROOM SPEAKING WITH PT. PT STILL REFUSING TO LEAVE TO FACILITY.
--- NOTE | 2017-09-04 20:45 | NUR ---
I CALLED THE PATIENT'S DAUGHTER MAXWELL RIGGS , I REACHED HER VOICEMAIL, I LET HER KNOW I WAS CALLING FROM [facility] TO VERIFY THAT SHE WAS GOING TO SENIOR MANAGER THE PATIENT I WAS TOLD BY THE PATIENT'S SON, RENU.
--- NOTE | 2017-09-04 20:48 | NUR ---
PT ENDORSED TO TELEPHONE TECHNICIAN NURSE FOR CONTINUITY OF CARE. PT STABLE AT THIS TIME.
--- NOTE | 2017-09-04 20:49 | NUR ---
RECEIVED REPORT FROM AM NURSE. PT IS AOX4, ABLE TO MAKE NEEDS KNOWN. WITH RESPIRATIONS CLEAR AND UNLABORED. NO COMPLAINTS OF PAIN AT THIS TIME. PT IS CURRENTLY ON THE PHONE, REFUSING VITAL SIGNS. WILL CONTINUE TO MONITOR. ALL NEEDS ATTENDED. AWAITING FOR DAUGHTER TO COME AND PICK THE PATIENT.
--- NOTE | 2017-09-04 20:49 | NUR ---
REFUSED VITAL SIGNS, IS AGITATED. EDUCATED THE PATIENT BUT STILL REFUSED AND YELLED SAYING SHE DOES NOT WANT ANYTHING DONE LIKE VITALS OR GIVEN ANY MEDICATIONS.
[2017-09-04] MEDS: ATORVASTATIN 20 MG TAB PO SCH (21:00)
--- NOTE | 2017-09-04 21:07 | NUR ---
REFUSED DUE MEDS, EDUCATED TO THE PATIENT THE BENEFITS OF THE MEDICATION. STILL REFUSED.
--- NOTE | 2017-09-04 22:15 | NUR ---
PATIENT LEFT WITH FAMILY VIA WHEELCHAIR. PERSONAL BELONGINGS BROUGHT OVER WITH PATIENT.
[2017-09-05] MEDS ORDERED: CLINICAL MONITORING MC SCH (09:00)
--- NOTE | 2017-09-08 20:33 | NUR ---
ENTRY FOR 09/07/17 1146 RECEIVED COMMUNICATION FROM DORIAN AT [facility] INQUIRING STATUS OF PT ADMISSION PT DID NOT ADMIT ON 09/04 PLANNED. INFORMED HER I WOULD FOLLOW UP WITH FAMILY. CALL PLACED TO PT'S DAUGHTER NELLY TO INQUIRE WHERE PT HAD DISCHARGED TO IT WAS IMPLIED BY RENU THAT HE WAS TAKING PT TO [facility]. PER NELLY HER BROTHER RENU HAD PICKED PT UP AND HAD TAKEN HER BACK TO THEIR RESIDENCE. NELLY STATED THAT HER BROTHER HAD CALLED HER YESTERDAY TO ASK HOW HE COULD OBTAIN PT'S MEDICATION. PER NELLY SEARS WAS OPPOSED TO PT GOING TO SNF AND HAD TAKEN PT HOME AND SHE HAD VOICED HER CONCERN TO HIM THAT THE PLAN WA FOR PT TO GO TO SNF AND THAT NOW PT HAD NOT BEEN RECEIVING HER MEDICATIONS. SHE STATED THAT SHE AND HER SISTER STEVE WANTED TO HELP HER MOTHER FIND MORE SUITABLE LIVING ARRANGEMENTS PT IS LIVING IN A RENTED SPACE THAT IS A GARAGE AND QUESTION HER BROTHERS MOTIVES FOR TAKING PT BACK TO THAT ENVIRONMENT. . SHE STATED THAT SHE AND HER SISTER STEVE HAD PLANNED THAT PT AFTER HER STAY IN SNF WOULD GO TO STEVE'S HOME BUT HER BROTHER WAS OPPOSED TO THATCALL PLACED TO RENU AND INQUIRED HOW PT WAS AND IF SHE WAS RECEIVING HER MEDICATIONS THAT SHE NEEDED. RENU STATED THAT HE HAD PICKED PT UP WITH HIS SISTER MAXWELL ON 09/04 FROM [facility] AND THAT PT HAD STATED SHE DID NOT WANT TO GO TO SNF. HE DID STATE THAT HE HAD PTS MEDICATIONS THAT SHE HAD PREVIOUSLY BEEN ON BUT DID NOT HAVE ANY MORE LEFT. INSTRUCTED RENU THAT IT WAS IMPORTANT THAT PT HAVE THE MEDICATIONS THAT SHE HAD BEEN ON WHILE HOSPITALIZED AND THAT IT WAS IMPLIED TO THE HOSPITAL STAFF THAT HE WAS GOING TO TRANSPORT PT TO [facility] ON 09/04 WHEN HE PICKED HER UP. HE STATED "SHE WANTED TO GO HOME. I HAVE BEEN TAKING CARE OF MY MOTHER AND I KNOW MY SISTERS DON'T AGREE". DISCUSSED WITH HIM THE CONCERN THAT PT NEEDS MEDICATION TO KEEP HER B/P UNDER CONTROL AND THAT PER A PREVIOUS CONVERSATION PT DOES NOT CURRENTLY HAVE A PCP AND ASKED IF HE WAS GOING TO PURSUE GETTING A PCP FOR PT AND HOW WOULD HE WOULD OBTAIN THE REQUIRED MEDICATIONS SHE NEEDS. RENU SAID HE WOULD FOLLOW UP HE HAS ALWAYS TAKEN CARE OF HER. INFORMED HIM THAT THE PHYSICIANS WHO HAD TREATED PT IN HOSPITAL COULD BE CONTACTED FOR FOLLOW UP. RENU STATED THAT HE WOULD FOLLOW UP. 09/08/17 RECEIVED VM FROM DAUGHTER STEVE REQUESTING CALL BACK. 1400 SPOKE WITH STEVE AND SHE STATED THAT PT WAS IN AGREEMENT TO BE ADMITTED TO [facility] AND SHE HAD TALKED TO THE FACILITY AND THEY HAD A BED AVAILABLE AND WOULD ACCEPT PT AND THAT SHE WAS AT THE FACILITY AT THIS TIME WITH PT FOR ADMISSION. INFORMED HER THAT I WOULD FOLLOW UP WITH DR MORA THE PHYSICIAN WHO HAD BEEN ASSIGNED TO TAKE CARE OF HER AND PROVIDE UPDATED INFORMATION. DR MORA CONTACTED AND INFORMED THAT THE RESULT OF THE BLOOD CULTURE OBTAINED ON 09/03 WAS POSITIVE AND THAT A COPY OF THE MICRO WOULD BE FAXED TO [facility]. CALL PLACED TO DORIAN AT [facility] AND CONFIRMED THAT PT HAD BEEN ADMITTED AND INFORMED HER THAT RESULT OF THE BLOOD CULTURE WAS FAXED AND DR MORA HAD BEEN UPDATED ON THE CULTURE REPORT AND OF PT'S ADMISSION TO [facility].
== END 2017-09-04 22:15 | DRG 56 ==
LOC: MED 22:11 → MTU 08-30 01:19
PROVIDERS: ADMIT Family Medicine Sports Medicine; ATTEND Family Medicine Sports Medicine
DX: G30.9 Alzheimer's disease, unspecified (principal); G93.41 Metabolic encephalopathy; N17.0 Acute kidney failure with tubular necrosis; I50.43 Acute on chronic combined systolic (congestive) and diastolic (congestive) heart failure; I67.4 Hypertensive encephalopathy; D68.59 Other primary thrombophilia; N18.3 Chronic kidney disease, stage 3 (moderate); I24.9 Acute ischemic heart disease, unspecified; I13.0 Hypertensive heart and chronic kidney disease with heart failure and stage 1 through stage 4 chronic kidney disease, or unspecified chronic kidney disease; I16.1 Hypertensive emergency; I42.9 Cardiomyopathy, unspecified; F02.80 Dementia in other diseases classified elsewhere, unspecified severity, without behavioral disturbance, psychotic disturbance, mood disturbance, and anxiety; E11.22 Type 2 diabetes mellitus with diabetic chronic kidney disease; I48.0 Paroxysmal atrial fibrillation; D53.9 Nutritional anemia, unspecified; E02 Subclinical iodine-deficiency hypothyroidism; E11.51 Type 2 diabetes mellitus with diabetic peripheral angiopathy without gangrene; B96.89 Other specified bacterial agents as the cause of diseases classified elsewhere; R80.9 Proteinuria, unspecified; I25.10 Atherosclerotic heart disease of native coronary artery without angina pectoris; Z88.6 Allergy status to analgesic agent; Z90.2 Acquired absence of lung [part of]; Z79.01 Long term (current) use of anticoagulants; Z79.899 Other long term (current) drug therapy

== ENCOUNTER 2017-10-22 22:38 | Inpatient (IN) | payer OTHER, MEDICAID ==
[~2017-10-22] VITALS: Ht 134.6 cm; Wt 59.4 kg
[~2017-10-22 22:38] MED LIST changes: -A & D OINT45 GM TP; +ACET-1182 PO; +AD45 TP; -ALTACE5 MG PO; +AMLO5TAB4 PO; +GLIP5TAB4 PO; -GLUCOTROL5 MG PO; +IBUP-974 PO; +METO25TA PO; -MOTRIN800 MG PO; -Metoprolol Tartrate PO; -NORVASC5 MG PO; +RIVA15TA1 PO; -XARELTO20 MG PO
--- NOTE | 2017-10-22 22:38 | NUR ---
PT KAIA ALS. TAKEN TO BED 2
[2017-10-22 22:43] VITALS: BP 205/105
--- NOTE | 2017-10-22 22:49 | NUR ---
Dr. Klein evaluating patient at bedside.
--- NOTE | 2017-10-22 22:50 | NUR ---
BIBA C/O HIGH BLOOD PRESSURE FOR 2 DAYS, AND DIS NOT TAKE HER MEDICATION AND CAN NOT FIND IT.PATIENT ALERT AWAKE .
--- NOTE | 2017-10-22 23:22 | NUR ---
PT TAKEN TO CT
--- NOTE | 2017-10-22 23:34 | NUR ---
PT RETURN FROM CT
[2017-10-22 23:55] LABS: BASOPHILS # (AUTO) 0.5 K/uL (0.00-0.22); BASOPHILS % (AUTO) 4.9 % (0.0-2.0); EOSINOPHILS # (AUTO) 0.5 K/uL (0-0.4); EOSINOPHILS % (AUTO) 4.5 % (0.0-4.0); HEMATOCRIT 33.1 % (36-48); HEMOGLOBIN 10.8 g/dL (12.0-16.0); LYMPHOCYTES # (AUTO) 1.1 K/uL (2.5-16.5); LYMPHOCYTES % (AUTO) 11.1 % (20.5-51.1); MEAN CORPUSCULAR HEMOGLOBIN 32 pg (27-31); MEAN CORPUSCULAR HGB CONC 33 g/dL (33-37); MEAN CORPUSCULAR VOLUME 97 fL (80-94); MONOCYTES % (AUTO) 9.7 % (1.7-9.3); NEUTROPHILS # (AUTO) 7.1 K/uL (1.8-7.7); NEUTROPHILS % (AUTO) 69.8 % (42.2-75.2); PLATELET COUNT (AUTO) 243 K/uL (140-450); RED BLOOD CELL COUNT(AUTO) 3.41 MIL/uL (4.20-5.40); RED CELL DISTRIBUTION WIDTH 14.3 % (11.6-13.7); WHITE BLOOD COUNT (AUTO) 10.2 K/uL (4.8-10.8)
[2017-10-23 00:14] LABS: CARBON DIOXIDE 24.4 mmol/L (21-32); CHLORIDE 110 mmol/L (98-107); CREATININE 2.1 mg/dL (0.6-1.3); GLUCOSE 99 mg/dL (74-106); POTASSIUM 4.4 mmol/L (3.5-5.1); SODIUM SERUM 145 mmol/L (136-145); UREA NITROGEN, BLOOD 43 mg/dL (7-18)
[2017-10-23 00:20] LABS: ALBUMIN 3.6 g/dL (3.4-5.0); ASPARTATE AMINOTRANSFERASE 20 U/L (15-37); PROTHROMBIN TIME 10.1 secs (10.8-13.4); TOTAL BILIRUBIN 0.5 mg/dL (0.0-1.0)
[2017-10-23] MEDS ORDERED: FUROSEMIDE 20 MG/2 ML VIAL IVP ONE (00:40)
[2017-10-23] MEDS ORDERED: NITROGLYCERIN 2% 1 GM PKT TP ONE (00:40)
[2017-10-23] MEDS ORDERED: hydrALAZINE 20 MG/ML VIAL IVP ONE (00:40)
--- NOTE | 2017-10-23 00:45 | NUR ---
MEDICATED PER ERMDS ORDER, PATIENT TOLERATED WELL.
[2017-10-23 01:50] LABS: APPEARANCE,URINE SL CLOUDY (CLEAR); BILIRUBIN,URINE NEGATIVE (NEGATIVE); BLOOD, URINE NEGATIVE (NEGATIVE); COLOR,URINE YELLOW (YELLOW); LEUKOCYTE ESTERASE ,URINE 2+ (NEGATIVE); NITRITE, URINE NEGATIVE (NEGATIVE); PH,URINE 5.5 (5.0-9.0); UGLUCOSE NEGATIVE (NEGATIVE)
--- NOTE | 2017-10-23 01:50 | NUR ---
ALL RESULTS BACK AND NOTED BY ERMD AND FOR ADMISSION.
[2017-10-23] MEDS ORDERED: ACETAMINOPHEN 325 MG TAB PO PRN (01:55)
[2017-10-23] MEDS ORDERED: HYDROcodone/APAP 7.5/325 MG 1 TAB PO PRN (01:55)
[2017-10-23] MEDS ORDERED: ONDANSETRON 4 MG/2 ML VIAL IVP PRN (01:55)
--- NOTE | 2017-10-23 02:03 | NUR ---
Patient will be admitted to care of DR. MUÑOZ. Admited to TELEMETRY. Will go to room 124 A. Belongings list completed.
--- NOTE | 2017-10-23 02:04 | NUR ---
REPORT GIVEN TO TERESA MICHELLE.
[2017-10-23 02:05] LABS: RBC,URINE 0-5 (RARE) /HPF (0-5); WBC,URINE 0-5 (RARE) /HPF (0-5)
[2017-10-23] MEDS ORDERED: FUROSEMIDE 20 MG/2 ML VIAL IVP SCH (02:15)
--- NOTE | 2017-10-23 02:21 | NUR ---
RECEIVED FROM ER PER SHER AWAKE AND ALERT. NO SOB. DENIES PAIN AT THIS TIME. CALL LIGHT WITH IN REACH. ORIENTED TO ROOM AND CARE GIVERS. TELEMETRY MONITORING. PT. ORIENTED TO RAPID RESPONSE MECHANISM. AFEBRILE. NO EDEMA NOTED. SKIN INTACT. ABLE TO VERBALIZE WELL IN CHILEAN. BED ALARM ON RT HX. DEMENTIA . CTAB. IVF SITE TO LFA #20 WITH GOOD BLOOD RETURN.
[2017-10-23 02:28] LABS: CHOL/HDL RATIO 2.1 (1-4.5); FREE T4 (FREE THYROXINE) 1.13 ng/dL (0.76-1.46); THYROID STIMULATING HORMONE 5.63 uIU/mL (0.34-3.74)
[2017-10-23 03:17] VITALS: BP 171/77
--- NOTE | 2017-10-23 03:27 | NUR ---
PT. ENCOURAGED TO GO TO SLEEP. SEEN BY RESIDENT MEDICAL STUDENT ON DUTY. NOTED PT. HAVE HISTORY OF FORGETFULNESS. CALL LIGHT WITH IN REACH. BED ALARM ON.
[2017-10-23] MEDS ORDERED: DEXTROSE 50% 50 ML SYR IVP PRN (04:05)
[2017-10-23] MEDS: NACL 0.9% 1,000 ML IV SCH ×2 (04:29→16:21)
--- NOTE | 2017-10-23 05:00 | NUR ---
SLEEPING IN AND OUT. WAKES UP EASILY. CALL LIGHT WITH IN REACH. ENCOURAGED TO SLEEP RT NIGHT TIME.
[2017-10-23] MEDS: BLOOD GLUCOSE MONITORING 1 DEV DEV FS SCH ×4 (06:09→20:50)
[2017-10-23] MEDS: glipiZIDE 5 MG TAB PO SCH (06:11)
--- NOTE | 2017-10-23 07:10 | NUR ---
SLEEPING. ABLE TO SLEEP WELL THIS SHIFT. TELEMETRY MONITORING. NO SOB. AM PERSONAL HYGIENE RENDERED BY CNAS. VERBALIZES NEEDS WELL. BLOOD SUGAR CHECK THIS AM 114.
[2017-10-23 07:19] LABS: BASOPHILS # (AUTO) 0.4 K/uL (0.00-0.22); BASOPHILS % (AUTO) 3.6 % (0.0-2.0); EOSINOPHILS # (AUTO) 0.5 K/uL (0-0.4); EOSINOPHILS % (AUTO) 4.4 % (0.0-4.0); HEMATOCRIT 27.4 % (36-48); HEMOGLOBIN 9.8 g/dL (12.0-16.0); LYMPHOCYTES % (AUTO) 18.5 % (20.5-51.1); MEAN CORPUSCULAR HEMOGLOBIN 36 pg (27-31); MEAN CORPUSCULAR HGB CONC 36 g/dL (33-37); MEAN CORPUSCULAR VOLUME 101 fL (80-94); MONOCYTES % (AUTO) 9.6 % (1.7-9.3); NEUTROPHILS # (AUTO) 6.7 K/uL (1.8-7.7); NEUTROPHILS % (AUTO) 63.9 % (42.2-75.2); PLATELET COUNT (AUTO) 228 K/uL (140-450); RED BLOOD CELL COUNT(AUTO) 2.71 MIL/uL (4.20-5.40); RED CELL DISTRIBUTION WIDTH 14.2 % (11.6-13.7); WHITE BLOOD COUNT (AUTO) 10.6 K/uL (4.8-10.8)
--- NOTE | 2017-10-23 07:25 | NUR ---
RECEIVED REPORT FROM SCREEN STRETCHER NURSE, PT IS RESTING IN BED, A/OX3, AMBULATES WITH ASSIST, SKIN IS INTACT, IV IS ON THE LEFT FA, PATENT, INTACT, FLUSHING WELL, NO S/S OF RESPIRATORY DISTRESS OR DISCOMFORT NOTED, DISCUSSED PLAN OF CARE WITH PT, PT VERBALIZED UNDERSTANDING, SAFETY/FALL PRECAUTIONS ARE IN PLACE, CALL LIGHT IS WITHIN REACH, WILL CONTINUE TO MONITOR.
--- NOTE | 2017-10-23 07:34 | NUR ---
ENDORSED TO THE NEXT RN FOR CONTINUITY OF CARE AWAKE AND ALERT. NO COMPLAINTS DONE.
[2017-10-23 07:40] LABS: ANION GAP 14.1 (8-16); CARBON DIOXIDE 23.8 mmol/L (21-32); CHLORIDE 109 mmol/L (98-107); CREATININE 1.9 mg/dL (0.6-1.3); GLUCOSE 115 mg/dL (74-106); POTASSIUM 3.9 mmol/L (3.5-5.1); SODIUM SERUM 143 mmol/L (136-145); UREA NITROGEN, BLOOD 42 mg/dL (7-18)
[2017-10-23 07:50] LABS: MAGNESIUM 1.5 mg/dL (1.8-2.4); PHOSPHORUS 3.6 mg/dL (2.5-4.9)
[2017-10-23 08:00] VITALS: BP 151/80
--- NOTE | 2017-10-23 08:30 | NUR ---
PATIENT'S LINENS AND GOWN CHANGED, ALL NEEDS ARE MET AT THIS TIME.
[2017-10-23] MEDS: DOCUSATE SODIUM 100 MG GELCAP PO SCH ×2 (09:00→20:50)
--- NOTE | 2017-10-23 09:00 | NUR ---
REALTY SPECIALIST IS AT PATIENT'S BEDSIDE WORKING WITH PT.
[2017-10-23] MEDS: METOPROLOL 25 MG TAB PO SCH ×2 (09:01→20:50)
[2017-10-23] MEDS: FUROSEMIDE 40 MG/4 ML VIAL IVP SCH (09:02)
[2017-10-23] MEDS: amLODIPine 5 MG TAB PO SCH (09:02)
[2017-10-23] MEDS: FLUTICASONE NASAL 50 MCG/ACTUATION 16 GM BTL NS SCH (09:03)
[2017-10-23] MEDS: RIVAROXABAN 15 MG TAB PO SCH (09:07)
--- NOTE | 2017-10-23 10:03 | NUR ---
PATIENT HAS BEEN SCREENED AND CATEGORIZED HIGH NUTRITION RISK. PATIENT WILL BE SEEN WITHIN 1-2 DAYS OF ADMISSION. 10/23/17 - 10/24/17 MARY MACHADO MBA, RD
[2017-10-23] MEDS: PANTOPRAZOLE 40 MG INJ VIAL IVP SCH (10:22)
--- NOTE | 2017-10-23 11:45 | NUR ---
PT RESTING IN BED, NO S/S OF RESPIRATORY DISTRESS OR DISCOMFORT NOTED.
[2017-10-23 12:00] VITALS: BP 136/76
--- NOTE | 2017-10-23 15:00 | NUR ---
PT IS SLEEPING IN BED AT THIS TIME.
[2017-10-23] MEDS ORDERED: MAG SULF 2000 MG/WATER PREMIX 50 ML IV SCH (15:55)
[2017-10-23 16:00] VITALS: BP 143/61
[2017-10-23] MEDS: INSULIN LISPRO SLIDING SCALE 100 UNITS/ML VIAL SUBQ PRN (17:25)
--- NOTE | 2017-10-23 17:30 | NUR ---
PATIENT RESTING IN BED AT THIS TIME.
--- NOTE | 2017-10-23 19:20 | NUR ---
RECEIVED FROM AM RN IN BED AWAKE AND ALERT. NO SOB. SITTING UP IN BED. CALL LIGHT WITH IN REACH AND BED ALARM ON. ABLE TO VERBALIZE NEEDS WELL. BP AT THIS TIME IS 115/52. PT. WITH HX. DEMENTIA. ON TELEMETRY MONITORING. DX. HTN URGENCY.
--- NOTE | 2017-10-23 19:22 | NUR ---
ENDORSED PT TO PAIRER NURSE FOR CONTINUITY OF CARE, PT STABLE AT THIS TIME.
[2017-10-23] MEDS: ATORVASTATIN 20 MG TAB PO SCH (20:50)
[2017-10-23 20:54] VITALS: BP 115/52
--- NOTE | 2017-10-24 | NUR ---
PT. AWAKE. STATED SHE WANTS TO WATCH TV. ENCOURAGED TO GO BACK TO SLEEP RT NIGHT TIME STILL. AGREED. PT. WENT BACK TO SLEEP. CALL LIGHT WITH IN REACH. ABLE TO USE IT. TELEMETRY MONITORING.
[2017-10-24] MEDS: NACL 0.9% 1,000 ML IV SCH ×3 (00:17→23:05)
[2017-10-24 00:52] VITALS: BP 126/74
--- NOTE | 2017-10-24 03:58 | NUR ---
PT. AWAKE AT THIS TIME. VITAL SIGNS TAKEN. ABLE TO VERBALIZE SIMPLE NEEDS. NO SOB. NO S/S OF HYPERGLYCEMIA/HYPOGLYCEMIA NOTED. TELEMETRY MONITORING.
[2017-10-24 04:02] VITALS: BP 145/70
[2017-10-24] MEDS: glipiZIDE 5 MG TAB PO SCH (05:27)
[2017-10-24] MEDS: BLOOD GLUCOSE MONITORING 1 DEV DEV FS SCH ×4 (05:27→21:15)
--- NOTE | 2017-10-24 06:02 | NUR ---
PT. AM PERSONAL HYGIENE RENDERED BY CNAS. NO COMPLAINTS DONE. TELEMETRY MONITORING.
[2017-10-24 08:00] VITALS: BP 139/66
--- NOTE | 2017-10-24 08:00 | NUR ---
RECEIVED REPORT FROM TERESA RN FOR CONTINUITY OF CARE. PATIENT AWAKE A/OX4 NO S/S OF RESP DISTRESS NOTED NO COMPLAIN OF PAIN. ABLE TO MAKE NEEDS KNOWN IV SITE RIGHT FA G 24 INTACT AND PATENT , IVF INFUSING WELL PLAN OF CARE DISCUSSED WITH THE PATIENT VITALS STABLE WILL CONTINUE TO MONITOR.
--- NOTE | 2017-10-24 09:30 | NUR ---
DUE MEDS GIVEN TOLERATED WELL , ATE BREAKFAST GOOD APPETITE. ASSISTED PATIENT WITH MORNING CARE.
[2017-10-24] MEDS: RIVAROXABAN 15 MG TAB PO SCH (09:40)
[2017-10-24] MEDS: DOCUSATE SODIUM 100 MG GELCAP PO SCH ×2 (09:41→21:12)
[2017-10-24] MEDS: METOPROLOL 25 MG TAB PO SCH ×2 (09:41→21:12)
[2017-10-24] MEDS: amLODIPine 5 MG TAB PO SCH (09:41)
[2017-10-24] MEDS: PANTOPRAZOLE 40 MG INJ VIAL IVP SCH (09:42)
[2017-10-24] MEDS: FUROSEMIDE 40 MG/4 ML VIAL IVP SCH (09:42)
[2017-10-24] MEDS: FLUTICASONE NASAL 50 MCG/ACTUATION 16 GM BTL NS SCH (09:56)
--- NOTE | 2017-10-24 11:39 | NUR ---
10/24/17 RD INITIAL ASSESSMENT COMPLETED PLEASE REFER TO NUTRITION ASSESSMENT UNDER CARE ACTIVITY FOR ESTIMATED NUTRITIONAL NEEDS. RD RECOMMENDATIONS: 1- RECOMMEND CONTINUE 60G CCHO 2G NA DIET 2- F/U 3-5 DAYS; MODERATE RISK MARY MACHADO MBA, RD
[2017-10-24 12:00] VITALS: BP 126/72
--- NOTE | 2017-10-24 12:00 | NUR ---
BLOOD SUGAR 160 SLIDING SCALE COVERAGE 2 UNITS GIVEN. VITALS STABLE AT THIS TIME.
[2017-10-24 14:49] LABS: BASOPHILS # (AUTO) 0.1 K/uL (0.00-0.22); BASOPHILS % (AUTO) 1.1 % (0.0-2.0); EOSINOPHILS # (AUTO) 0.8 K/uL (0-0.4); EOSINOPHILS % (AUTO) 6.9 % (0.0-4.0); HEMATOCRIT 30.3 % (36-48); HEMOGLOBIN 9.8 g/dL (12.0-16.0); LYMPHOCYTES # (AUTO) 0.5 K/uL (2.5-16.5); LYMPHOCYTES % (AUTO) 4.1 % (20.5-51.1); MEAN CORPUSCULAR HEMOGLOBIN 31 pg (27-31); MEAN CORPUSCULAR HGB CONC 33 g/dL (33-37); MEAN CORPUSCULAR VOLUME 95 fL (80-94); MONOCYTES # (AUTO) 0.8 K/uL (0.8-1.0); MONOCYTES % (AUTO) 7.3 % (1.7-9.3); NEUTROPHILS % (AUTO) 80.6 % (42.2-75.2); PLATELET COUNT (AUTO) 231 K/uL (140-450); RED CELL DISTRIBUTION WIDTH 14.1 % (11.6-13.7); WHITE BLOOD COUNT (AUTO) 11.2 K/uL (4.8-10.8)
--- NOTE | 2017-10-24 15:50 | NUR ---
LAB NOTIFIED ME FOR CRITICAL LAB TROPONIN 0.[address] CEDILLO AND WILL NOTIFY DR IQBAL.
[2017-10-24 16:18] VITALS: BP 129/85
[2017-10-24 17:24] LABS: ANION GAP 12.2 (8-16); CARBON DIOXIDE 24.8 mmol/L (21-32); CHLORIDE 103 mmol/L (98-107); CREATININE 1.7 mg/dL (0.6-1.3); GLUCOSE 138 mg/dL (74-106); SODIUM SERUM 136 mmol/L (136-145); UREA NITROGEN, BLOOD 43 mg/dL (7-18)
[2017-10-24 17:58] LABS: MAGNESIUM 2.2 mg/dL (1.8-2.4); PHOSPHORUS 3.8 mg/dL (2.5-4.9)
--- NOTE | 2017-10-24 18:06 | NUR ---
CHECKED BLOOD SUGAR 125 NO COVERAGE NEEDED DINNER SERVED GOOD APPETITE SAFETY MAINTAINED CALL LIGHT IN REACH.
--- NOTE | 2017-10-24 19:30 | NUR ---
RECEIVED PT IN STABLE CONDITION FROM AM NURSE. AWAKE,ALERT AND ORIENTED X3. WITH PERIODS OF CONFUSION. ON TELE MONITOR-SR. BEDREST DUE TO GEN WEAKNESS. HAS IVF INFUSING WELL ON THE LT FA#20. CLEAR AND PATENT. SKIN INTACT. BED ON LOW POSITION. FREQUENT ROUNDS NEEDED. CALL LIGHT PLACED WITHIN EASY REACH. WILL CONTINUE TO MONITOR.
--- NOTE | 2017-10-24 19:34 | NUR ---
ENDORSE THE CARE TO KRYSTAL RN
[2017-10-24 20:00] VITALS: BP 129/68
[2017-10-24] MEDS: ATORVASTATIN 20 MG TAB PO SCH (21:12)
--- NOTE | 2017-10-24 21:12 | NUR ---
BLOOD SUGAR WAS CHECKED RESULT 171. INSULIN HUMALOG 2 UNITS SUB Q GIVEN . PROVIDED WITH HS SNACK. WILL CONTINUE TO MONITOR.
[2017-10-24] MEDS: INSULIN LISPRO SLIDING SCALE 100 UNITS/ML VIAL SUBQ PRN (21:16)
--- NOTE | 2017-10-24 22:30 | NUR ---
PT IS INCONTINENT . CLEANED AND KEPT DRY. REPOSITIONED FOR COMFORT.
[2017-10-25 00:21] VITALS: BP 147/71
--- NOTE | 2017-10-25 02:00 | NUR ---
MADE ROUNDS . PT IS ASLEEP. NO S/S OF ANY DISCOMFORT NOR DISTRESS NOTED.
[2017-10-25 04:20] VITALS: BP 151/73
[2017-10-25] MEDS: glipiZIDE 5 MG TAB PO SCH (05:57)
[2017-10-25] MEDS: BLOOD GLUCOSE MONITORING 1 DEV DEV FS SCH ×4 (05:58→20:56)
--- NOTE | 2017-10-25 06:00 | NUR ---
BLOOD SUGAR THIS AM 109. NO INSULIN NEEDED.
--- NOTE | 2017-10-25 07:20 | NUR ---
ENDORSED PT IN STABLE CONDITION TO AM NURSE FOR CONTINUITY OF CARE.
--- NOTE | 2017-10-25 07:34 | NUR ---
ENDORSEMENT RECEIVED FROM FISH CULTURIST NURSE. PATIENT IS STABLE, RESPIRATION EVEN, SKIN DRY AND WARM TO THE TOUCH. CALL LIGHT WITHIN REACH. WILL CONTINUE TO MONITOR.
[2017-10-25] MEDS: NACL 0.9% 1,000 ML IV SCH ×2 (07:59→21:19)
[2017-10-25 08:00] VITALS: BP 154/68
--- NOTE | 2017-10-25 08:00 | NUR ---
PATIENT AWAKE, ALERT, ORIENTED X 1. RIGHT EYE BLINDNESS, LEFT EYE REACTIVE TO LIGHT. RESPIRATION EVEN, LUNGS SOUND CLEAR THROUGHOUT. CARDIAC WITH S1,S2 PRESENT. BOWEL SOUND ACTIVE 4 QUADRANTS. PEDAL PULSE STRONG AND EQUAL. IV 20G ON LEFT AC WITH NS @ 75 ML/HR, PATENT AND INTACT. PATIENT DENIED PAIN AT THIS TIME. CALL LIGHT WITHIN REACH. WILL CONTINUE TO MONITOR
[2017-10-25 08:13] LABS: HEMOGLOBIN 10.3 g/dL (12.0-16.0); PLATELET COUNT (AUTO) 208 K/uL (140-450); RED BLOOD CELL COUNT(AUTO) 2.47 MIL/uL (4.20-5.40); RED CELL DISTRIBUTION WIDTH 13.7 % (11.6-13.7); WHITE BLOOD COUNT (AUTO) 9.6 K/uL (4.8-10.8)
[2017-10-25 08:23] LABS: ANION GAP 11.1 (8-16); CARBON DIOXIDE 24.6 mmol/L (21-32); CHLORIDE 108 mmol/L (98-107); CREATININE 1.6 mg/dL (0.6-1.3); GLUCOSE 100 mg/dL (74-106); POTASSIUM 3.7 mmol/L (3.5-5.1); SODIUM SERUM 140 mmol/L (136-145); UREA NITROGEN, BLOOD 38 mg/dL (7-18)
[2017-10-25 08:31] LABS: MAGNESIUM 2.1 mg/dL (1.8-2.4); PHOSPHORUS 3.5 mg/dL (2.5-4.9)
[2017-10-25 08:37] LABS: HEMATOCRIT 30.9 % (36-48); MEAN CORPUSCULAR VOLUME 102 fL (80-94)
[2017-10-25 08:38] LABS: MEAN CORPUSCULAR HEMOGLOBIN 34 pg (27-31); MEAN CORPUSCULAR HGB CONC 33 g/dL (33-37)
[2017-10-25] MEDS: DOCUSATE SODIUM 100 MG GELCAP PO SCH ×2 (09:00→21:00)
[2017-10-25] MEDS: amLODIPine 5 MG TAB PO SCH (09:17)
[2017-10-25] MEDS: METOPROLOL 25 MG TAB PO SCH (09:17)
[2017-10-25] MEDS: PANTOPRAZOLE 40 MG INJ VIAL IVP SCH (09:18)
[2017-10-25] MEDS: FLUTICASONE NASAL 50 MCG/ACTUATION 16 GM BTL NS SCH (09:18)
[2017-10-25] MEDS: FUROSEMIDE 40 MG/4 ML VIAL IVP SCH (09:19)
[2017-10-25 09:31] LABS: BASOPHILS % (MANUAL) 0 % (0-2); EOSINOPHILS % (MANUAL) 8 % (0-4); LYMPHOCYTES % (MANUAL) 15 % (20-46); MONOCYTES % (MANUAL) 11 % (5-12)
[2017-10-25] MEDS: RIVAROXABAN 15 MG TAB PO SCH (09:51)
--- NOTE | 2017-10-25 11:55 | NUR ---
PATIENT TRYING TO GET OUT OF BED, CONFUSED, STATES " MY DAUGHTERS ARE FIGHTING". TEARFUL " IM GOING TO GET IT WHEN I GET HOME". WILL CONTINUE TO MONITOR
[2017-10-25 12:00] VITALS: BP 158/77
--- NOTE | 2017-10-25 12:05 | NUR ---
PATIENT ACCIDENTALLY REMOVED IV. CATHETER INTACT. WILL INSERT NEW IV.
--- NOTE | 2017-10-25 14:00 | NUR ---
PATIENT IS SLEEPING COMFORTABLY, RESPIRATION EVEN, NO DISTRESS NOTED AT THIS TIME
[2017-10-25 16:00] VITALS: BP 128/59
[2017-10-25] MEDS ORDERED: LISINOPRIL 20 MG TAB PO SCH (16:30)
[2017-10-25 17:16] LABS: BASOPHILS # (AUTO) 0.4 K/uL (0.00-0.22); EOSINOPHILS # (AUTO) 0.8 K/uL (0-0.4); HEMATOCRIT 31.4 % (36-48); HEMOGLOBIN 10.5 g/dL (12.0-16.0); LYMPHOCYTES # (AUTO) 0.7 K/uL (2.5-16.5); MEAN CORPUSCULAR HEMOGLOBIN 32 pg (27-31); MEAN CORPUSCULAR HGB CONC 34 g/dL (33-37); MEAN CORPUSCULAR VOLUME 95 fL (80-94); PLATELET COUNT (AUTO) 229 K/uL (140-450); RED BLOOD CELL COUNT(AUTO) 3.31 MIL/uL (4.20-5.40); RED CELL DISTRIBUTION WIDTH 13.7 % (11.6-13.7); WHITE BLOOD COUNT (AUTO) 9.9 K/uL (4.8-10.8)
[2017-10-25 17:28] LABS: ANION GAP 14.1 (8-16); CARBON DIOXIDE 22.8 mmol/L (21-32); CHLORIDE 104 mmol/L (98-107); CREATININE 1.7 mg/dL (0.6-1.3); GLUCOSE 114 mg/dL (74-106); POTASSIUM 3.9 mmol/L (3.5-5.1); SODIUM SERUM 137 mmol/L (136-145); UREA NITROGEN, BLOOD 39 mg/dL (7-18)
[2017-10-25 17:39] LABS: MAGNESIUM 1.9 mg/dL (1.8-2.4); PHOSPHORUS 3.8 mg/dL (2.5-4.9)
--- NOTE | 2017-10-25 18:40 | NUR ---
PT ON THE PHONE SCREAMING CRYING, PT ON THE PHONE WITH RENU (SON), PT CALMS WITH REASSURANCE, WILL CONTINUE TO MONITOR.
[2017-10-25] MEDS ORDERED: ZOLPIDEM 10 MG TAB PO PRN (19:15)
--- NOTE | 2017-10-25 19:44 | NUR ---
ENDORSEMENT GIVEN TO JOURNEYMAN APPRENTICE ELECTRICIANS NURSE. PATIENT IS STABLE AT THIS TIME
--- NOTE | 2017-10-25 19:45 | NUR ---
RECEIVED PT IN STABLE CONDITION FROM AM NURSE. AWAKE, BUT SO AGITATED AND ANXIOUS AT THIS TIME. DR. NAVARRO, RESIDENT CAME AND WILL ORDER SOME SLEEPING PILL FOR PT . SON JUST CALLED ON THE PHONE ABLE TO TALKED TO HER. WILL SEE PT TOMORROW. ON TELE MONITOR. BEDREST. WITH HL ON THE RT FA #[phone]. CLEAR AND PATENT. BED ON LOW POSITION. FREQUENT ROUNDS NEEDED DUE TO CONFUSION. SIDE RAILS UP X3. CALL LIGHT PLACED WITHIN EASY REACH. WILL CONTINUE TO MONITOR.
[2017-10-25] MEDS ORDERED: FERRIC GLUCONATE 125 MG in NACL 0.9% 100 ML IV SCH (19:55)
[2017-10-25 20:00] VITALS: BP 156/70
[2017-10-25] MEDS: ATORVASTATIN 20 MG TAB PO SCH (20:56)
[2017-10-25] MEDS ORDERED: ZOLPIDEM 5 MG TAB PO SCH (21:00)
--- NOTE | 2017-10-25 21:00 | NUR ---
DR. NAVARRO MADE AWARE THAT FERRLICET IV NOT AVAILABLE AT NIGHT. SHE SAID OK TO GIVE ELLIE AM. WILL CHANGE THE ORDER TIME.
[2017-10-25] MEDS: INSULIN LISPRO SLIDING SCALE 100 UNITS/ML VIAL SUBQ PRN (21:33)
--- NOTE | 2017-10-25 22:30 | NUR ---
PT INCONTINENT. CLEANED AN DRY. REPOSITIONED FOR COMFORT.
--- NOTE | 2017-10-25 23:00 | NUR ---
SLEEPING WELL AT THIS TIME. NO S/S OF ANY DISCOMFORT NOR PAIN NOTED. WILL CONTINUE TO MONITOR.
[2017-10-26 00:23] VITALS: BP 130/83
--- NOTE | 2017-10-26 01:00 | NUR ---
CHECKED ON PT . DRY AT THIS TIME. REPOSITIONED FOR COMFORT.
[2017-10-26] MEDS: NACL 0.9% 1,000 ML IV SCH ×3 (01:22→22:07)
[2017-10-26] MEDS ORDERED: ZOLPIDEM 5 MG TAB PO PRN (01:25)
--- NOTE | 2017-10-26 02:30 | NUR ---
SLEEPING WELL AT THIS TIME. NO S/S OF ANY DISTRESS NOR PAIN NOTED. WILL CONTINUE TO MONITOR.
[2017-10-26 03:45] VITALS: BP 143/69
--- NOTE | 2017-10-26 04:30 | NUR ---
PT INCONTINENT OF URINE AND HAD A SMALL AMOUNT OF SOFT BROWN STOOL. CLEANED AND KEPT DRY. REPOSITIONED FOR COMFORT.
[2017-10-26] MEDS: BLOOD GLUCOSE MONITORING 1 DEV DEV FS SCH ×4 (06:09→21:00)
--- NOTE | 2017-10-26 06:09 | NUR ---
BLOOD SUGAR THIS AM 79. PROVIDED WITH SOME JUICE AND CRACKERS. TOLERATED WELL.
[2017-10-26] MEDS: glipiZIDE 5 MG TAB PO SCH (06:10)
[2017-10-26 06:44] LABS: BASOPHILS # (AUTO) 0.3 K/uL (0.00-0.22); BASOPHILS % (AUTO) 3.4 % (0.0-2.0); EOSINOPHILS # (AUTO) 0.6 K/uL (0-0.4); EOSINOPHILS % (AUTO) 7.1 % (0.0-4.0); HEMATOCRIT 26.9 % (36-48); HEMOGLOBIN 9.7 g/dL (12.0-16.0); LYMPHOCYTES # (AUTO) 0.7 K/uL (2.5-16.5); LYMPHOCYTES % (AUTO) 8.7 % (20.5-51.1); MEAN CORPUSCULAR HEMOGLOBIN 37 pg (27-31); MEAN CORPUSCULAR HGB CONC 36 g/dL (33-37); MEAN CORPUSCULAR VOLUME 101 fL (80-94); MONOCYTES % (AUTO) 11.9 % (1.7-9.3); NEUTROPHILS # (AUTO) 5.8 K/uL (1.8-7.7); NEUTROPHILS % (AUTO) 68.9 % (42.2-75.2); PLATELET COUNT (AUTO) 208 K/uL (140-450); RED BLOOD CELL COUNT(AUTO) 2.66 MIL/uL (4.20-5.40); RED CELL DISTRIBUTION WIDTH 13.8 % (11.6-13.7); WHITE BLOOD COUNT (AUTO) 8.4 K/uL (4.8-10.8)
[2017-10-26 07:17] LABS: ANION GAP 12.1 (8-16); CARBON DIOXIDE 24.8 mmol/L (21-32); CHLORIDE 106 mmol/L (98-107); CREATININE 1.7 mg/dL (0.6-1.3); GLUCOSE 113 mg/dL (74-106); POTASSIUM 3.9 mmol/L (3.5-5.1); SODIUM SERUM 139 mmol/L (136-145); UREA NITROGEN, BLOOD 41 mg/dL (7-18)
--- NOTE | 2017-10-26 07:45 | NUR ---
ENDORSED PT IN STABLE CONDITION TO AM NURSE.
[2017-10-26 08:00] VITALS: BP 134/66
[2017-10-26] MEDS ORDERED: FERRIC GLUCONATE 125 MG in NACL 0.9% 100 ML IV SCH (08:00)
--- NOTE | 2017-10-26 08:22 | NUR ---
0755 RECEIVED REPORT FROM MICHELLE RICE AT BEDSIDE. INITIAL ASSESSMENT COMPLETED. PT AAOX3 WITH EPISODES OF CONFUSION AT TIMES. PT INCONTINENT. PT HAS IV ON RIGHT FOREARM G 22 INFUSING FLUIDS WELL. PT'S SKIN IS INTACT. PT STABLE, WILL CONTINUE TO MONITOR PT.
[2017-10-26 09:20] LABS: MAGNESIUM 2.1 mg/dL (1.8-2.4); PHOSPHORUS 4.2 mg/dL (2.5-4.9)
[2017-10-26] MEDS: DOCUSATE SODIUM 100 MG GELCAP PO SCH ×2 (09:39→22:06)
[2017-10-26] MEDS: amLODIPine 5 MG TAB PO SCH (09:39)
[2017-10-26] MEDS: FUROSEMIDE 40 MG/4 ML VIAL IVP SCH (09:39)
[2017-10-26] MEDS: RIVAROXABAN 15 MG TAB PO SCH (09:40)
[2017-10-26] MEDS: LISINOPRIL 20 MG TAB PO SCH (09:40)
[2017-10-26] MEDS: METOPROLOL SUCCINATE 50 MG TABER PO SCH (09:40)
[2017-10-26] MEDS: PANTOPRAZOLE 40 MG INJ VIAL IVP SCH (09:41)
[2017-10-26] MEDS: FLUTICASONE NASAL 50 MCG/ACTUATION 16 GM BTL NS SCH (09:51)
--- NOTE | 2017-10-26 09:52 | NUR ---
PT TOLERATED MORNING MEDS WELL. WILL CONTINUE TO MONITOR PT.
[2017-10-26 12:00] VITALS: BP 138/71
[2017-10-26] MEDS: INSULIN LISPRO SLIDING SCALE 100 UNITS/ML VIAL SUBQ PRN ×3 (12:21→22:17)
--- NOTE | 2017-10-26 14:53 | NUR ---
ROCEPHIN GIVEN. PT STABLE, PT TALKING ON THE PHONE. CALL LIGHT WITHIN REACH.
--- NOTE | 2017-10-26 15:18 | NUR ---
ENDORSED PT IN STABLE CONDITION TO MICHELLE SINCLAIR.
--- NOTE | 2017-10-26 15:18 | NUR ---
RECEIVED REPORT FROM MICHELLE MEJIA. PATIENT IS AAOX3, INFORMED HER THAT I WILL BE HER NURSE FOR THE REST OF THE SHIFT AND SHE VERBALIZED UNDERSTANDING. PATIENTS RESPIRATORY EFFORT IS EVEN AND UNLABORED, NO OTHER SIGNS AND SYMPTOMS OF ACUTE DISTRESS NOTED AT THIS TIME. HAS IV TO RIGHT FOREARM 22G INFUSING NS AT 100 ML/HR. SITE IS CLEAN, DRY, PATENT AND INTACT. WRAPPED WITH KERLIX GAUZE. BED IS IN LOWEST POSITION, SIDERAILS UP X2, CALL LIGHT PLACED WITHIN REACH. WILL CONTINUE TO MONITOR.
[2017-10-26 16:00] VITALS: BP 136/64
--- NOTE | 2017-10-26 19:30 | NUR ---
ENDORSED PATIENT TO SHIPPING CLERK PACKING RN FOR CONTINUITY OF CARE. PATIENT IS STABLE AT THIS TIME.
--- NOTE | 2017-10-26 19:31 | NUR ---
RECEIVED REPORT FROM AM NURSE. PT IS AAOX3. NO SIGNS OF ACUTE DISTRESS NOTED. RESPIRATIONS EVEN AND UNLABORED. SKIN COLOR APPROPRIATE TO ETHNICITY. IV ACCESS INTACT AND PATENT. TELE MONITOR IN PLACE. PLAN OF CARE DISCUSSED, PT VERBALIZED UNDERSTANDING. BED IN LOW POSITION, BILATERAL HALF SIDE RAILS UP, CALL LIGHT WITHIN REACH, WILL CONTINUE TO MONITOR.
[2017-10-26 20:00] VITALS: BP 113/45
[2017-10-26] MEDS: ATORVASTATIN 20 MG TAB PO SCH (22:05)
[2017-10-27] VITALS: BP 116/51
[2017-10-27 04:00] VITALS: BP 128/57
[2017-10-27 06:21] LABS: FOLIC ACID 10.3 ng/mL (>3.0)
[2017-10-27 06:28] LABS: BASOPHILS # (AUTO) 0.3 K/uL (0.00-0.22); BASOPHILS % (AUTO) 3.5 % (0.0-2.0); EOSINOPHILS # (AUTO) 0.7 K/uL (0-0.4); EOSINOPHILS % (AUTO) 9.4 % (0.0-4.0); HEMATOCRIT 25.1 % (36-48); HEMOGLOBIN 8.6 g/dL (12.0-16.0); LYMPHOCYTES # (AUTO) 1.3 K/uL (2.5-16.5); LYMPHOCYTES % (AUTO) 16.8 % (20.5-51.1); MEAN CORPUSCULAR HEMOGLOBIN 35 pg (27-31); MEAN CORPUSCULAR HGB CONC 34 g/dL (33-37); MEAN CORPUSCULAR VOLUME 102 fL (80-94); MONOCYTES % (AUTO) 13.6 % (1.7-9.3); NEUTROPHILS # (AUTO) 4.3 K/uL (1.8-7.7); NEUTROPHILS % (AUTO) 56.7 % (42.2-75.2); PLATELET COUNT (AUTO) 183 K/uL (140-450); RED BLOOD CELL COUNT(AUTO) 2.46 MIL/uL (4.20-5.40); RED CELL DISTRIBUTION WIDTH 13.8 % (11.6-13.7); WHITE BLOOD COUNT (AUTO) 7.6 K/uL (4.8-10.8)
[2017-10-27] MEDS: glipiZIDE 5 MG TAB PO SCH (06:30)
--- NOTE | 2017-10-27 06:44 | NUR ---
NON ADMINISTERED GLIPIZIDE MEDICATION DUE AT 0630. BLOOD SUGAR READING WAS 84. WILL HOLD AT THIS TIME DUE TO LOW BLOOD SUGAR READING.
[2017-10-27] MEDS: BLOOD GLUCOSE MONITORING 1 DEV DEV FS SCH ×3 (06:46→16:30)
[2017-10-27 06:47] LABS: ANION GAP 12.5 (8-16); CARBON DIOXIDE 21.8 mmol/L (21-32); CHLORIDE 108 mmol/L (98-107); GLUCOSE 86 mg/dL (74-106); POTASSIUM 4.3 mmol/L (3.5-5.1); SODIUM SERUM 138 mmol/L (136-145); UREA NITROGEN, BLOOD 54 mg/dL (7-18)
[2017-10-27 06:55] LABS: MAGNESIUM 1.8 mg/dL (1.8-2.4); PHOSPHORUS 4.5 mg/dL (2.5-4.9)
--- NOTE | 2017-10-27 07:30 | NUR ---
ENDORSED PT TO AM NURSE FOR CONTINUITY OF CARE. PT IS IN STABLE CONDITION.
--- NOTE | 2017-10-27 07:31 | NUR ---
RECEIVED REPORT FROM STOCK CLIPPER RN. PATIENT IS AAOX3, INFORMED HER THAT I WILL BE HER NURSE FOR THE REST OF THE SHIFT AND SHE VERBALIZED UNDERSTANDING. PATIENTS RESPIRATORY EFFORT IS EVEN AND UNLABORED, NO OTHER SIGNS AND SYMPTOMS OF ACUTE DISTRESS NOTED AT THIS TIME. HAS IV TO RIGHT FOREARM 22G INFUSING NS AT 100 ML/HR. SITE IS CLEAN, DRY, PATENT AND INTACT. WRAPPED WITH KERLIX GAUZE. BED IS IN LOWEST POSITION, SIDERAILS UP X2, CALL LIGHT PLACED WITHIN REACH. WILL CONTINUE TO MONITOR.
[2017-10-27 08:00] VITALS: BP 125/66
[2017-10-27] MEDS: PANTOPRAZOLE 40 MG INJ VIAL IVP SCH (09:26)
[2017-10-27] MEDS: FUROSEMIDE 40 MG/4 ML VIAL IVP SCH (09:26)
[2017-10-27] MEDS: METOPROLOL SUCCINATE 50 MG TABER PO SCH (09:27)
[2017-10-27] MEDS: amLODIPine 5 MG TAB PO SCH (09:27)
[2017-10-27] MEDS: DOCUSATE SODIUM 100 MG GELCAP PO SCH (09:27)
[2017-10-27] MEDS: LISINOPRIL 20 MG TAB PO SCH (09:27)
[2017-10-27] MEDS: RIVAROXABAN 15 MG TAB PO SCH (09:28)
[2017-10-27] MEDS: FLUTICASONE NASAL 50 MCG/ACTUATION 16 GM BTL NS SCH (09:28)
--- NOTE | 2017-10-27 11:38 | NUR ---
P.T. NOTES Pt WAS SEEN AWAKE & ALERT IN BED, ORIENTED TO SELF & PLACE, SPEAKS SAUDI ARABIAN, FORGETFUL, DECLINED TO PARTICIPATE W/ P.T., STATES "I AM DIRTY UNDER THERE, I NEED TO BE CLEANED, I'M NOT LYING, I'M NOT TRYING TO GET OUT OF WALKING", WAITER/WAITRESS INFORMAL NOTIFIED FOR PERINEAL CARE, Pt ALSO STATED "I'M GOING TODAY"; RETURNED LATER, Pt APPEARS TO BE IGNORING P.T. STAFF, AWAKE & ALERT, LOOKING AWAY FROM P.T. STAFF, WHEN ASKED TO PARTICIPATE W/ P.T., Pt SHOOK HER HEAD SIDEWAYS, WHEN ASKED WHY, Pt NOT REPLYING AT THIS TIME & STILL LOOKING AWAY, EXPLAINED BENEFITS OF THERAPY, NO REPLY AT THIS TIME; WHEN P.T. STAFF OFFERED TO COME BACK LATER, Pt REPLIED "I WON'T DO IT"; CALL [employer], PHONE, TABLE IN REACH, BED ALARM ON; FOLLOW UP TOMORROW. PVEx2
[2017-10-27 12:00] VITALS: BP 146/65
--- NOTE | 2017-10-27 12:12 | NUR ---
PATIENTS SON RENU IS AT THE BEDSIDE AND WOULD LIKE TO SPEAK TO THE TAPE CONTROLLED MACHINE STITCHER. SVETLANA NOTIFIED THAT FAMILY IS HERE. STATED SHE WILL COME BY.
[2017-10-27] MEDS: NACL 0.9% 1,000 ML IV SCH (13:19)
--- NOTE | 2017-10-27 13:42 | NUR ---
FAXED INQUIRY TO [facility].
--- NOTE | 2017-10-27 15:20 | NUR ---
5378 SPOKE WITH PT AND SON RENU AT BEDSIDE WITH DR DONAHUE PRESENT. DISCUSSED THE NEED FOR PT TO GO TO SNF TO CONTINUE WITH IV ABX AND PT. DISCUSSED WITH RENU THAT THE PT'S HOME ENVIRONMENT IS NOT IDEAL FOR PT TO HAVE IV THERAPY. PT AND RENU ARE IN AGREEMENT WITH TRANSFER TO [facility] PT HAS BEEN THERE BEFORE. CONTACTED DORIAN AT [facility] AND SHE STATED SHE HAS A BED AVAILABLE AND WILL ACCEPT PT UNDER SERVICE OF DR Vasile MORA. [facility] [phone]
--- NOTE | 2017-10-27 15:20 | NUR ---
SPOKE WITH DORIAN FROM [facility]. SHE SAID THE PATIENT CAN GO TO ROOM 22A UNDER DR. Tigist MORA. CALLED [facility] AND SET UP WC TRANSPORT FOR 7:30P.Shanthi BRAVO CLUTCH SPECIALIST NURSE AWARE.
[2017-10-27 16:00] VITALS: BP 145/65
[2017-10-27] MEDS ORDERED: HUMSLIDE SUBQ (16:16)
[2017-10-27] MEDS ORDERED: ONDA2SOL45 IVP (16:16)
[2017-10-27] MEDS ORDERED: GLUC-805 FS (16:16)
[2017-10-27] MEDS ORDERED: PANT40PD7 IVP (16:16)
[2017-10-27] MEDS ORDERED: D50SYR IVP (16:16)
[2017-10-27] MEDS ORDERED: ZOLP5TAB1 PO (16:16)
[2017-10-27] MEDS ORDERED: METO50TE2 PO (16:16)
[2017-10-27] MEDS ORDERED: ROC2I IV (16:16)
[2017-10-27] MEDS ORDERED: DOCU-299 PO (16:16)
[2017-10-27] MEDS ORDERED: LISI-420 PO (16:16)
[2017-10-27] MEDS ORDERED: FLONAS NS (16:16)
[2017-10-27] MEDS ORDERED: LAS20I IVP (16:16)
--- NOTE | 2017-10-27 18:35 | NUR ---
CALLED [facility] AND SPOKE WITH LIZZIE TO GIVE HER REPORT.
--- NOTE | 2017-10-27 19:10 | NUR ---
ENDORSED PATIENT TO CHILD CARE NURSE NURSE FOR CONTINUITY OF CARE. PATIENT IN STABLE CONDITION.
--- NOTE | 2017-10-27 19:15 | NUR ---
RECD. RESTING IN BED, AWAKE, A/OX2. RESPIRATION EVEN AND UNLABORED. IV SALINE LOCK AT THE LEFT FOREARM G22, PATENT AND INTACT. AWARE OF DISCHARGE TONIGHT. WAITING FOR [facility] TO TAKE HER TO [facility]. ADDITIONAL DISCHARGE INSTRUCTIONS GIVEN. NEEDS REINFORCEMENT. DENIES PAIN 0/10.
--- NOTE | 2017-10-27 20:15 | NUR ---
REPORT GIVEN TO [facility] PERSONNEL.
--- NOTE | 2017-10-27 20:40 | NUR ---
TAKEN TO HOSPITAL PARKING VIA W/C IN STABLE CONDITION ACCOMPANIED BY AMBULANCE PERSONNEL FOR TRANSFER TO [facility].
--- NOTE | 2017-10-28 13:21 | NUR ---
Beni CALLED [facility] AND SPOKE WITH BRITNEY IN REGARDS TO SHE HAD LEFT MESSAGE THAT PT ON THEIR SERVICE [phone] AND INFORMED HER THAT PT WAS DISCHARGED TO [facility]
== END 2017-10-27 20:40 | DRG 291 ==
LOC: MED 22:38 → MTU 10-23 02:03
PROVIDERS: ADMIT Family Medicine; ATTEND Family Medicine
DX: I13.0 Hypertensive heart and chronic kidney disease with heart failure and stage 1 through stage 4 chronic kidney disease, or unspecified chronic kidney disease (principal); N17.0 Acute kidney failure with tubular necrosis; J96.00 Acute respiratory failure, unspecified whether with hypoxia or hypercapnia; I50.43 Acute on chronic combined systolic (congestive) and diastolic (congestive) heart failure; G93.41 Metabolic encephalopathy; N39.0 Urinary tract infection, site not specified; I16.0 Hypertensive urgency; E11.65 Type 2 diabetes mellitus with hyperglycemia; E83.42 Hypomagnesemia; F03.90 Unspecified dementia, unspecified severity, without behavioral disturbance, psychotic disturbance, mood disturbance, and anxiety; D64.9 Anemia, unspecified; Z88.6 Allergy status to analgesic agent; E66.9 Obesity, unspecified; Z68.32 Body mass index [BMI] 32.0-32.9, adult; I25.10 Atherosclerotic heart disease of native coronary artery without angina pectoris; E87.8 Other disorders of electrolyte and fluid balance, not elsewhere classified; I48.0 Paroxysmal atrial fibrillation; E02 Subclinical iodine-deficiency hypothyroidism; E78.00 Pure hypercholesterolemia, unspecified; E11.51 Type 2 diabetes mellitus with diabetic peripheral angiopathy without gangrene; E78.5 Hyperlipidemia, unspecified; E11.22 Type 2 diabetes mellitus with diabetic chronic kidney disease; N18.9 Chronic kidney disease, unspecified; Z91.14 Patient's other noncompliance with medication regimen; Z79.01 Long term (current) use of anticoagulants; Z79.899 Other long term (current) drug therapy
CPT/HCPCS: 36415; 70450; 71010; 80048; 80053; 81001; 82140; 82150; 82550; 82553; 82607; 82728; 82746; 82948; 83036; 83540; 83605; 83690; 83735; 83874; 83880; 84100; 84439; 84443; 84484; 85025; 85045; 85610; 85730; 87040; 87081; 87086; 93005; 93970; 96374; 96375; 97110; 97116; 97530; 99285; C9113; J0360; J0696; J1815; J1940; J2916; J3475; J7030; J7042; J7060; Q0092

== ENCOUNTER 2019-05-04 17:41 | Emergency (ER) | payer MEDICAID, OTHER ==
[~2019-05-04] VITALS: Ht 149.9 cm; Wt 59.9 kg
[~2019-05-04 17:41] MED LIST changes: -AMLO5TAB4 PO; +AMLO5TAB6 PO; +D50SYR IVP; +DOCU-299 PO; +FLONAS NS; +GLUC-805 FS; +HUMSLIDE SUBQ; +LAS20I IVP; +LISI-420 PO; +METO50TE2 PO; +ONDA2SOL45 IVP; +PANT40PD7 IVP; +ROC2I IV; +ZOLP5TAB1 PO
[2019-05-04 18:01] VITALS: BP 176/83
[2019-05-04] MEDS ORDERED: ACETAMINOPHEN 325 MG TAB PO ONE (18:10)
--- NOTE | 2019-05-04 18:16 | NUR ---
XRAY AT BEDSIDE.
--- NOTE | 2019-05-04 18:30 | NUR ---
PATIENT PRESENTS TO ED WITH C/O RT WRIST PAIN. PT SON SHE WAS CLEANING AND HELPING CLEAN A FEW DAYS AGO AND NOW HAS PAIN AND SWELLING TO RT WRIST. PATIENT STATES PAIN OF 4/10 AT THIS TIME; PATIENT POSITIONED FOR COMFORT; HOB ELEVATED; BEDRAILS UP X1; BED DOWN. ER MD TO EVALUATE PT.
--- NOTE | 2019-05-04 19:15 | NUR ---
Patient awaiting son to pick her up.
[2019-05-04 19:47] VITALS: BP 148/58
--- NOTE | 2019-05-04 19:48 | NUR ---
Patient discharged with v/s stable. Written and verbal after care instructions given and explained. Patient verbalized understanding. Ambulatory with to car. All questions addressed prior to discharge. Advised to follow up with PMD. Splint in place, +cms.
== END 2019-05-04 19:47 | disposition home or self-care (01) ==
LOC: MED 17:41
DX: S60.211A Contusion of right wrist, initial encounter (principal); E11.9 Type 2 diabetes mellitus without complications; I10 Essential (primary) hypertension; Z79.4 Long term (current) use of insulin; Z79.899 Other long term (current) drug therapy; Z88.5 Allergy status to narcotic agent; W20.8XXA Other cause of strike by thrown, projected or falling object, initial encounter; Y93.89 Activity, other specified; Y92.89 Other specified places as the place of occurrence of the external cause; Y99.8 Other external cause status
CPT/HCPCS: 73110; 99283

== ENCOUNTER 2019-08-07 16:32 | Emergency (ER) | payer OTHER ==
[~2019-08-07] VITALS: Ht 144.8 cm; Wt 58.1 kg
[2019-08-07 16:36] VITALS: BP 179/75
--- NOTE | 2019-08-07 16:44 | NUR ---
PT WHEELCHAIRED TO BED 2
--- NOTE | 2019-08-07 16:48 | NUR ---
PT WHEELCHAIRED TO BED 5
--- NOTE | 2019-08-07 17:03 | NUR ---
Patient being evaluated by DR SIMON at bedside.
--- NOTE | 2019-08-07 17:06 | NUR ---
WHEN ASKED WHAT IS HER PAIN PROBLEM, PT STATES HER DAUGHTER IS TAKING AWAY MONEY FROM HER AND SAYING THINGS THAT MAKE HER UPSET. DENIES PHYSICAL ABUSE. STATES NO PAIN NOW. STATES FALL X 3 WEEKS AGO. DENIES LOC AT THE TIME. STATES MILD CHEST DISCOMFORT THIS MORNING BECAUSE SHE WAS UPSET BUT DENIES ANY PAIN ANYWHERE AT THIS TIME. PMH- DM, HTN
[2019-08-07] MEDS ORDERED: ACETAMINOPHEN 325 MG TAB PO ONE (17:15)
--- NOTE | 2019-08-07 17:15 | NUR ---
X RAY AT BEDSIDE.
--- NOTE | 2019-08-07 17:24 | NUR ---
PT STATES PAIN IS "IN MY BUTT" 02/06. ADMINISTERED TYLENOL.
--- NOTE | 2019-08-07 17:31 | NUR ---
EMT AT BEDSIDE FOR EKG.
--- NOTE | 2019-08-07 17:40 | NUR ---
[facility]
--- NOTE | 2019-08-07 17:53 | NUR ---
LAB AT BEDSIDE.
[2019-08-07 18:07] LABS: BASOPHILS % (AUTO) 0.4 % (0.0-2.0); EOSINOPHILS # (AUTO) 0.6 K/uL (0-0.4); EOSINOPHILS % (AUTO) 5.8 % (0.0-4.0); HEMATOCRIT 32.8 % (36-48); HEMOGLOBIN 11.1 g/dL (12.0-16.0); LYMPHOCYTES # (AUTO) 1.5 K/uL (2.5-16.5); LYMPHOCYTES % (AUTO) 14.3 % (20.5-51.1); MEAN CORPUSCULAR HEMOGLOBIN 32 pg (27-31); MEAN CORPUSCULAR HGB CONC 34 g/dL (33-37); MEAN CORPUSCULAR VOLUME 94.5 fL (80-94); MONOCYTES # (AUTO) 0.6 K/uL (0.8-1.0); MONOCYTES % (AUTO) 5.6 % (1.7-9.3); NEUTROPHILS # (AUTO) 7.8 K/uL (1.8-7.7); NEUTROPHILS % (AUTO) 73.9 % (42.2-75.2); PLATELET COUNT (AUTO) 309 K/uL (140-450); RED BLOOD CELL COUNT(AUTO) 3.47 MIL/uL (4.20-5.40); RED CELL DISTRIBUTION WIDTH 13.9 % (11.6-13.7); WHITE BLOOD COUNT (AUTO) 10.5 K/uL (4.8-10.8)
[2019-08-07 18:24] LABS: ASPARTATE AMINOTRANSFERASE 14 U/L (15-37); CARBON DIOXIDE 20.7 mmol/L (21-32); CREATININE 1.5 mg/dL (0.6-1.3); GLUCOSE 121 mg/dL (74-106); LIPASE 145 U/L (73-393); TOTAL BILIRUBIN 0.6 mg/dL (0.0-1.0); UREA NITROGEN, BLOOD 32 mg/dL (7-18)
[2019-08-07 18:27] LABS: ANION GAP 16.5 (8-16); CHLORIDE 112 mmol/L (98-107); POTASSIUM 4.2 mmol/L (3.5-5.1); SODIUM SERUM 145 mmol/L (136-145)
[2019-08-07 18:39] LABS: CREATINE KINASE MB 1.6 ng/mL (0-3.6)
--- NOTE | 2019-08-07 18:57 | NUR ---
called son, eta 10 min
--- NOTE | 2019-08-07 19:04 | NUR ---
Pt report given to MICHELLE KAY. Transfer of care at this time. VSS.
[2019-08-07 19:30] VITALS: BP 168/77
--- NOTE | 2019-08-07 19:30 | NUR ---
Patient discharged with v/s stable. Written and verbal after care instructions given and explained. Patient verbalized understanding. Wheel Chair Assisted with by caregiver (SON). All questions addressed prior to discharge. Advised to follow up with PMD.
== END 2019-08-07 19:30 | disposition home or self-care (01) ==
LOC: MED 16:32
DX: R07.89 Other chest pain (principal); E11.9 Type 2 diabetes mellitus without complications; I10 Essential (primary) hypertension; F03.90 Unspecified dementia, unspecified severity, without behavioral disturbance, psychotic disturbance, mood disturbance, and anxiety; Z86.79 Personal history of other diseases of the circulatory system; Z79.2 Long term (current) use of antibiotics; Z79.899 Other long term (current) drug therapy; Z79.4 Long term (current) use of insulin; Z79.01 Long term (current) use of anticoagulants; Z88.5 Allergy status to narcotic agent; W18.39XA Other fall on same level, initial encounter; Y92.89 Other specified places as the place of occurrence of the external cause; Y93.89 Activity, other specified; Y99.8 Other external cause status
CPT/HCPCS: 36415; 71045; 80053; 82550; 82553; 83690; 84484; 85025; 93005; 99283; Q0092; 99284

== ENCOUNTER 2019-10-04 09:33 | Inpatient (IN) | payer OTHER ==
[~2019-10-04] VITALS: Ht 152.4 cm; Wt 61.2 kg
--- NOTE | 2019-10-04 09:33 | NUR ---
Patient BIBA ALS, transferred to bed 11. RN evaluating patient at bedside.
[2019-10-04 09:41] VITALS: BP 179/71
--- NOTE | 2019-10-04 09:43 | NUR ---
Dr. Hough is evaluating the patient at bedside.
[2019-10-04 10:18] LABS: APPEARANCE,URINE CLEAR (CLEAR); BILIRUBIN,URINE NEGATIVE (NEGATIVE); BLOOD, URINE NEGATIVE (NEGATIVE); COLOR,URINE YELLOW (YELLOW); LEUKOCYTE ESTERASE ,URINE TRACE (NEGATIVE); NITRITE, URINE NEGATIVE (NEGATIVE); PH,URINE 5.5 (5.0-9.0); UGLUCOSE NEGATIVE (NEGATIVE)
--- NOTE | 2019-10-04 10:20 | NUR ---
PT BIB EMS WITH C/O ALOC. PT PRESENTS WITH A CLEAR SPEECH BUT ANSWERS QUESTIONS INAPPROPRIATELY. PT IS ALERT TO NAME. CUSTOMER SALES REPRESENTATIVE EQUAL BILATERALLY. PT PRESENTS WITH MILD WEAKNESS AND STATES NO PAIN AT THIS TIME. VSS. ER MD TO SEE PT. BED RAILS UP X2 FOR PT SAFETY. ER MD TO SEE PT.
[2019-10-04 10:23] LABS: BASOPHILS # (AUTO) 0.1 K/uL (0.00-0.22); BASOPHILS % (AUTO) 1.2 % (0.0-2.0); EOSINOPHILS # (AUTO) 0.4 K/uL (0-0.4); HEMATOCRIT 32.8 % (36-48); HEMOGLOBIN 11.9 g/dL (12.0-16.0); LYMPHOCYTES # (AUTO) 1.2 K/uL (2.5-16.5); LYMPHOCYTES % (AUTO) 11.6 % (20.5-51.1); MEAN CORPUSCULAR HEMOGLOBIN 38 pg (27-31); MEAN CORPUSCULAR HGB CONC 36 g/dL (33-37); MEAN CORPUSCULAR VOLUME 103.9 fL (80-94); MONOCYTES # (AUTO) 0.8 K/uL (0.8-1.0); MONOCYTES % (AUTO) 8.2 % (1.7-9.3); NEUTROPHILS # (AUTO) 7.6 K/uL (1.8-7.7); PLATELET COUNT (AUTO) 286 K/uL (140-450); RED BLOOD CELL COUNT(AUTO) 3.16 MIL/uL (4.20-5.40); RED CELL DISTRIBUTION WIDTH 14.9 % (11.6-13.7); WHITE BLOOD COUNT (AUTO) 10.1 K/uL (4.8-10.8)
[2019-10-04 10:24] LABS: BARBITURATE, URINE NEG. ng/ml (NEG <=200); BENZODIAZEPINE, URINE NEG. ng/mL (NEG <=200); CANNABINOID, URINE NEG. ng/mL (NEG <=50); COCAINE, URINE NEG. ng/mL (NEG <=300); OPIATE, URINE NEG. ng/mL (NEG <=2000); PHENCYCLIDINE SCREEN,URINE NEG. ng/mL (NEG <=25)
--- NOTE | 2019-10-04 10:25 | NUR ---
outside plant technician at bedside.
[2019-10-04 10:30] LABS: HYALINE CASTS, URINE 0-10 /LPF (None Seen); RBC,URINE 0 /HPF (0-5); WBC,URINE 0-5 /HPF (0-5)
[2019-10-04 10:36] LABS: SODIUM SERUM 141 mmol/L (136-145)
[2019-10-04 10:37] LABS: ASPARTATE AMINOTRANSFERASE 26 U/L (15-37); CHLORIDE 105 mmol/L (98-107); CREATININE 1.5 mg/dL (0.6-1.3); GLUCOSE 141 mg/dL (74-106); TOTAL BILIRUBIN 0.7 mg/dL (0.0-1.0); UREA NITROGEN, BLOOD 35 mg/dL (7-18)
[2019-10-04 10:38] LABS: ACETAMINOPHEN < 0.5 ug/ml (10-30); ALBUMIN 3.6 g/dL (3.4-5.0); SALICYLATE < 2.8 mg/dL (2.8-20.0)
--- NOTE | 2019-10-04 10:42 | NUR ---
PT RETURNED FROM CT VIA [facility].
[2019-10-04 11:38] LABS: ANION GAP 20.4 (8-16); CARBON DIOXIDE 19.6 mmol/L (21-32)
--- NOTE | 2019-10-04 11:58 | NUR ---
EKG AT BEDSIDE
--- NOTE | 2019-10-04 13:35 | NUR ---
Patient will be admitted to care of DR. CHAHAL. Admited to TELE. Will go to room 124A. Belongings list completed. Report to ERIK MARTINEZ.
--- NOTE | 2019-10-04 13:35 | NUR ---
PATIENT ARRIVED UNIT VIA GURNEY ACCOMPANIED BY ER NURSE. PATIENT IS AAOX 1 TO NAME. RESPIRATION EVEN AND UNLABORED ON RA. DENIED DIZZINESS, PAIN, AND SOB. NO SIGNS OF DISTRESS NOTED. IV ON R WRIST 22G, INTACT AND CLEAN, DATED, SL. PATIENT IS INCONTINENT AND BEDREST DUE TO GENERALIZED WEAKNESS. SKIN TEAR ON L AND R BUTTOCK NOTED, SKIN TEAR ON L HEEL NOTED. NON-PITTING 1+ EDEMA ON R FOOT NOTED. APPLIED TELE MONITOR. ORIENTED PATIENT TO THE ROOM, DEMONSTRATED ON HOW TO USE THE CALL LIGHT, BED REMOTE, TELEPHONE, TV AND LIGHT, REINFORCEMENT NEEDED DUE TO PATIENT'S MENTAL STATUS. VITAL SIGNS TAKEN AND MRSA NARES COLLECTED. SAFETY MEASURES IN PLACE. BED IN LOW POSITION AND CALL LIGHT WITHIN REACH. FALL RISK PROTOCOL INITIALED AND BED ALARM ACTIVATED. INSTRUCTED PATIENT TO USE THE CALL LIGHT FOR ANY ASSISTANCE AND PATIENT SAID OK.
[2019-10-04 13:40] VITALS: BP 154/58
--- NOTE | 2019-10-04 15:25 | NUR ---
PATIENT IS AWAKE AND RESTING ON BED. NO SIGNS OF DISTRESS NOTED. SAFETY MEASURES IN PLACE. BED IN LOW POSITION AND CALL LIGHT WITHIN REACH. FALL RISK PROTOCOL INITIALED AND BED ALARM ACTIVATED. INSTRUCTED PATIENT TO USE THE CALL LIGHT FOR ANY ASSISTANCE AND PATIENT VERBALIZED OK.
--- NOTE | 2019-10-04 16:15 | NUR ---
SENT PATIENT'S HOME MEDS TO PHARMACY AND PUT REFINING SUPERVISOR PATIENT'S CHART.
[2019-10-04] MEDS ORDERED: MORPHINE SULFATE 2 MG/ML SYR IV PRN (16:40)
[2019-10-04] MEDS ORDERED: ONDANSETRON 4 MG/2 ML VIAL IVP PRN (16:40)
[2019-10-04] MEDS ORDERED: ACETAMINOPHEN 325 MG TAB PO PRN (16:40)
[2019-10-04 17:02] VITALS: BP 150/65
[2019-10-04] MEDS: BLOOD GLUCOSE MONITORING 1 DEV DEV FS SCH ×2 (17:23→21:09)
--- NOTE | 2019-10-04 17:30 | NUR ---
RECEIVED A CALL FROM DR BUTTERFIELD AND INFORMED DR BUTTERFIELD'S PATIENT'S TROPONIN LEVEL. PER DR BUTTERFIELD, IF NO TORPONIN LAB ORDER FOR FOLLOW UP AND TOMORROW AM, ORDER ONE. AND ALSO DR BUTTERFIELD STATED IF 12 LEAD EKG HAS NOT BEEN DONE, ORDER ONE. REPEATED AND CONFIRMED ORDER WITH DR BUTTERFIELD. WILL ORDER ACCORDINGLY.
--- NOTE | 2019-10-04 17:50 | NUR ---
PATIENT IS RESTING ON BED AT THIS TIME. RESPIRATION EVEN AND UNLABORED ON RA. NO SIGNS OF DISTRESS NOTED. SAFETY MEASURES IN PLACE. BED IN LOW POSITION AND CALL LIGHT WITHIN REACH. FALL RISK PROTOCOL INITIALED AND BED ALARM ACTIVATED. INSTRUCTED PATIENT TO USE THE CALL LIGHT FOR ANY ASSISTANCE AND PATIENT SAID OK.
--- NOTE | 2019-10-04 18:43 | NUR ---
RECEIVED CALL BACK FROM DR CHAHAL AND NOTIFIED DR CHAHAL OF CRITICAL LAB TROPONIN [phone]. DR CHAHAL WAS AWARE AND STATED TO NOTIFY DR BUTTERFIELD FOR CRITICAL LAB WELL. WILL NOTIFY DR BUTTERFIELD.
--- NOTE | 2019-10-04 18:50 | NUR ---
RECEIVED A CALL BACK FROM DR BUTTERFIELD AND NOTIFIED DR BUTTERFIELD OF CRITICAL TROPONIN. DR BUTTERFIELD WAS AWARE AND NO ORDER RECEIVED AT THIS TIME.
--- NOTE | 2019-10-04 19:21 | NUR ---
RECIEVED PT. AAO 2 TO 3 - THERE IS A TIMES PT. TALKING IRRELEVANTLY TO TOPIC , BUT CAN FOLLOW SIMPLE COMMAND. NID , ON SALINE LOCK - INTACT AND PATENT , V/S WNL , DENIES PAIN AT THIS TIME , ON SAFETY / FALL PRECAUTION PROTOCOL - BED ALARM ON . PLAN OF CARE DISCUSSED BUT POOR UNDERSTANDING DUE TO MENTAL STATUS.WILL CONT. TO MONITOR.
--- NOTE | 2019-10-04 19:21 | NUR ---
ENDORSED PT AT BEDSIDE TO RESTAURANT HOURLY TEAM MEMBER NURSE. PT IS EATING DINNER ON BED AT THIS TIME. DENIES PAIN, SOB. RESP EVEN AND UNLABORED ON RA. NO SIGNS OF DISTRESS NOTED. TELE MONITOR ATTACHED. PT IS IN STABLE CONDITION.
[2019-10-04 20:00] VITALS: BP 125/69
[2019-10-04] MEDS ORDERED: LOVENOX 1MG/KG Q12H SUBQ SCH (21:00)
[2019-10-04] MEDS: METOPROLOL SUCCINATE 50 MG TABER PO SCH (21:20)
[2019-10-04] MEDS: ATORVASTATIN 20 MG TAB PO SCH (21:20)
[2019-10-04] MEDS: ENOXAPARIN 60 MG/0.6 ML SYR SUBQ SCH (21:26)
[2019-10-05] VITALS: BP 111/60
[2019-10-05] MEDS ORDERED: ACETAMINOPHEN 325 MG TAB ONE (01:47)
[2019-10-05] MEDS ORDERED: NITROGLYCERIN 0.4 MG TAB SL ONE ×2 (03:33→03:46)
[2019-10-05] MEDS: NITROGLYCERIN 0.4 MG TAB SL PRN ×2 (03:37→03:50)
--- NOTE | 2019-10-05 03:37 | NUR ---
C/O CHEST PAIN - NITROSTAT /SL GIVEN ORDERED - BP 130/72 PR92/V/S MACHINE - WILL CONT. TO MONITOR - ON SPECIAL WEAPONS UNIT OFFICER.- CALL LIGHT WITHIN REACH.
--- NOTE | 2019-10-05 03:50 | NUR ---
STILL C/O PAIN BP 125 /60 IA 100 O2 SAT 96% - 2ND DOSE OF NITROSTAT /SL GIVEN - WILL CONT. TO MONITOR. - CLOSE WATCH.
[2019-10-05 04:00] VITALS: BP 136/63
[2019-10-05] MEDS: BLOOD GLUCOSE MONITORING 1 DEV DEV FS SCH ×4 (06:41→20:56)
--- NOTE | 2019-10-05 07:20 | NUR ---
RECEIVED BEDSIDE REPORT FROM SOCIAL INSURANCE ADVISER NURSE, PT IS ASLEEP, NO S/S OF ACUTE DISTRESS, NO SOB. PT ON ROOM AIR. IV SITE R HAND 22 G, SALINE LOCKED. BILAT FOAM HEEL PROTECTORS IN PLACE. FALL PRECAUTIONS IN PLACE. CALL LIGHT WITHIN REACH. WILL CONTINUE TO MONITOR.
[2019-10-05 08:00] VITALS: BP 136/64
--- NOTE | 2019-10-05 08:23 | NUR ---
PATIENT HAS BEEN SCREENED AND CATEGORIZED MODERATE NUTRITION RISK. PATIENT WILL BE SEEN WITHIN 3-5 DAYS OF ADMISSION. 10/07/19 10/09/[address]
[2019-10-05 08:30] LABS: BASOPHILS # (AUTO) 0.1 K/uL (0.00-0.22); BASOPHILS % (AUTO) 0.6 % (0.0-2.0); EOSINOPHILS # (AUTO) 0.4 K/uL (0-0.4); EOSINOPHILS % (AUTO) 4.4 % (0.0-4.0); LYMPHOCYTES # (AUTO) 1.4 K/uL (2.5-16.5); LYMPHOCYTES % (AUTO) 14.2 % (20.5-51.1); MEAN CORPUSCULAR HEMOGLOBIN 38 pg (27-31); MEAN CORPUSCULAR HGB CONC 36 g/dL (33-37); MEAN CORPUSCULAR VOLUME 106.5 fL (80-94); MONOCYTES # (AUTO) 0.9 K/uL (0.8-1.0); MONOCYTES % (AUTO) 9.5 % (1.7-9.3); NEUTROPHILS % (AUTO) 71.3 % (42.2-75.2); PLATELET COUNT (AUTO) 250 K/uL (140-450); RED BLOOD CELL COUNT(AUTO) 2.63 MIL/uL (4.20-5.40); RED CELL DISTRIBUTION WIDTH 14.6 % (11.6-13.7); WHITE BLOOD COUNT (AUTO) 9.8 K/uL (4.8-10.8)
--- NOTE | 2019-10-05 08:30 | NUR ---
PT ATE 100% OF HER BREAKFAST
[2019-10-05 08:36] LABS: CARBON DIOXIDE 23.1 mmol/L (21-32); CHLORIDE 110 mmol/L (98-107); CREATININE 1.4 mg/dL (0.6-1.3); GLUCOSE 106 mg/dL (74-106); POTASSIUM 4.1 mmol/L (3.5-5.1); SODIUM SERUM 145 mmol/L (136-145); UREA NITROGEN, BLOOD 30 mg/dL (7-18)
[2019-10-05] MEDS ORDERED: ASPIRIN 81 MG TAB.CHEW PO SCH ×2 (09:00→10:50)
[2019-10-05] MEDS ORDERED: DEXTROSE 50% 50 ML SYR IVP PRN (09:00)
[2019-10-05] MEDS: METOPROLOL SUCCINATE 50 MG TABER PO SCH (11:00)
--- NOTE | 2019-10-05 11:05 | NUR ---
AM MEDS ADMINISTERED, PT TOLERATED WELL
[2019-10-05] MEDS ORDERED: LOSARTAN 50 MG TAB PO SCH (11:15)
[2019-10-05 12:00] VITALS: BP 164/69
--- NOTE | 2019-10-05 12:00 | NUR ---
DC PLANNING: PT WAS ADMITTED FROM HOME WITH A DX OF ALOC RULE OUT TIA . PT HAS A HX OF DEMENTIA ,HTN AND DM. PT HAS ELEVATED TROPONIN , PLAN FOR PERSONNEL ANALYST CONSULT ASPIRIN 81MG GIVEN AND NEURO CONSULT . D/C PLAN PER CARDIO AND NEURO RECOMMENDATION ,AMANDA TO F/U Addendum: 10/06/19 at 0920 by Bhargavi Hurt CM DC PLANNING: SEEN BY NEUROLOGIST DR VILLATORO ,ORDERED EEG , KEPPRA 750MG IVPBX1 AND 750MG PO TO BE CONTINUED UPON D/C . SPOKE WITH AMANDA GARCÍA AT [facility] UPDATED PT'S CLINICAL NOTES D/C PLAN TOGO HOME TODAY . CM TO FOLLOW Addendum: 10/06/19 at 1309 by Bhargavi Hurt CM DC PLANNING : DISCHARGE PATIENT HOME WITH KEPPRA 750MG PO DAILY FOR SEIZURE.
--- NOTE | 2019-10-05 12:00 | NUR ---
PT SEEN BY DR VILLATORO
--- NOTE | 2019-10-05 12:05 | NUR ---
WOUND CARE EVALUATION NOTE: REASON FOR EVALUATION: BUTTOCKS WOUND SKIN ASSESSMENT DONE WITH THIS 84Y/O FEMALE PT ADMITTED TO [facility] WITH CHEST PAIN. CLARIFICATION: BUTTOCKS OPEN WOUNDS ARE MAD NOT SKIN TEARS. PT. SKIN IS WARM AND DRY, BLE NO HAIR GROWTH, NO EDEMA TO BILATERAL LOWER LEGS. BILATERAL DORSAL PEDAL PULSES PRESENT AND NORMAL, CAPILLARY RE-FILLED UNABLE TO ASSESS DUE TO LONG THICK FUNGAL TOE NAILS. PLAN OF CARE DISCUSSED WITH PRIMARY RN AND PT. PT. VERBALIZES UNDERSTANDING BUT NEED REINFORCEMENT. INTEGUMENTARY: -LEFT HEEL SHEARING WOUND PARTIAL THICKNESS LOSS OF SKIN 3X2CM WITH SUPERFICIAL DEPTH, WOUND BED NON-BLANCHABLE REDNESS, KAREN WOUND SKIN INTACT -MOISTURE ASSOCIATE DERMATITIS TO RIGHT BUTTOCK 3X2CM AND LEFT BUTTOCK 4X2CM WOUND BED ARE PALE PINK AND MOIST, KAREN -WOUND SKIN INTACT -RIGHT HEEL BLANCHABLE REDNESS RECOMMENDATIONS: -CLEANSE LEFT AND RIGHT BUTTOCKS WITH SOAP AND WATER, PAT DRY, APPLY Z GUARD BID AND PRN WITH SOILING. -APPLY OPTIFOAM TO SACRALCOCCYX QD AND PRN SOILING PREVENTION -APPLY OPTIC FOAM AND HEEL RAISER TO RIGHT HEEL AT ALL TIMES -OFFLOAD BILATERAL HEELS BY PLACING PILLOWS UNDER CALVES UNLESS OTHERWISE CONTRAINDICATED -PRESSURE REDISTRIBUTION SURFACE THERAPY -TURN AND REPOSITION Q2H, OFFLOAD SACRALCOCCYX BY TURNING RIGHT AND LEFT -CONTINUE TO FOLLOW RD RECOMMENDATIONS ALL ABOVE RECOMMENDATIONS DISCUSSED WITH PRIMARY RN WILL FOLLOW UP PT Q7-10 DAYS. PLEASE CONTACT WOUND CARE NURSE FOR ANY QUESTION AND CHANGE OF WOUND CONDITION.
[2019-10-05] MEDS: INSULIN LISPRO SLIDING SCALE 100 UNITS/ML VIAL SUBQ PRN (12:21)
--- NOTE | 2019-10-05 12:40 | NUR ---
PAGED DR. VILLATORO TO FOLLOW UP WITH THE CONSULT. AWAITING FOR CALL BACK. GARRET ASSIGNED MADE AWARE.
--- NOTE | 2019-10-05 13:59 | NUR ---
PT RESTING COMFORTABLY IN BED AND TALKING ON THE PHONE WITH HER SON. PT ATE ABOUT 90% OF HER LUNCH.
[2019-10-05] MEDS ORDERED: levETIRAcetam 1,000 MG in NACL 0.9% 100 ML IV SCH (15:00)
--- NOTE | 2019-10-05 15:02 | NUR ---
Foreign Banknote Teller Note: I called patient's son Josef Mancera to obtain information for patient's assessment/discharge plan. However, recording states "at subscriber's request this phone is not accepting incoming calls", no option to leave message. I called patient's daughter Rubi Mancera , no answer, left message.
--- NOTE | 2019-10-05 15:50 | NUR ---
IV KEPPRA HUNG AND INFUSING PER MD ORDER. PT IS AWAKE AND ALERT, NO S/S OF DISTRESS.
[2019-10-05 16:00] VITALS: BP 165/68
--- NOTE | 2019-10-05 16:10 | NUR ---
SPOKE WITH GIAN FROM RESPIRATORY, PT IS SCHEDULED FOR EEG TOMORROW AT 0900 HRS. GARRET ASSIGNED MADE AWARE.
--- NOTE | 2019-10-05 19:15 | NUR ---
RECIEVED PT. AAOX3 , POOR HISTORIAN , EL[place] , ON SALINE LOCK - INTACT AND PATENT . DENIES ANY PAIN , WITH SKIN TEAR ON BOTH BUTTOCKS . NO SIGNS OF ACUTE DISTRESS NOTED AT THE TIME - ON CUTTER MACHINE TENDER . PLAN OF CARE DISCUSSED BUT POOR UNDERSTANDING DUE TO MENTAL STATUS . ON SAFETY / FALL PRECAUTION PROTOCOL - BED ALARM ON . CALL LIGHT WITHIN REACH . WILL CONT. TO MONITOR. FOR EEG ELLIE.
--- NOTE | 2019-10-05 19:15 | NUR ---
ENDORSED PT TO HAND CUTTER APPRENTICE NURSE IN STABLE CONDITION.
[2019-10-05 20:00] VITALS: BP 140/91
[2019-10-05] MEDS: ATORVASTATIN 20 MG TAB PO SCH (21:16)
[2019-10-05] MEDS: levETIRAcetam 500 MG TAB PO SCH (21:17)
[2019-10-05] MEDS: ENOXAPARIN 60 MG/0.6 ML SYR SUBQ SCH (21:22)
--- NOTE | 2019-10-05 22:00 | NUR ---
MADE ROUNDS . NO SIGNS OF ACUTE DISTRESS NOTED AT THIS TIME . CALL LIGHT WITHIN REACH . WILL CONT. TO MONITOR.
--- NOTE | 2019-10-06 | NUR ---
MADE ROUNDS , VOIDED - DIAPER FULLY SOAKED . NO ACUTE DISTRESS NOTED AT THIS TIME .
[2019-10-06 01:18] VITALS: BP 140/90
[2019-10-06 04:00] VITALS: BP 143/80
[2019-10-06] MEDS: BLOOD GLUCOSE MONITORING 1 DEV DEV FS SCH ×2 (06:28→10:33)
--- NOTE | 2019-10-06 07:12 | NUR ---
ENDORSED TO AM SHIFT , AAOX3 NID, FOR EEG TODAY . WITH DISCHARGE ORDER FROM DR. CHAHAL BUT NO DISCHARGE ORDER YET FROM DR. BUTTERFIELD AND DR. VILLATORO.
--- NOTE | 2019-10-06 07:25 | NUR ---
RECEIVED PT FROM NIGHT NURSE. PT WITH EYES CLOSED, BUT AROUSABLE TO SPEECH. AAOX3. RESPIRATIONS EVEN AND UNLABORED ON ROOM AIR. CLEAR BREATH SOUNDS. NO DISTRESS NOTED, DENIES PAIN AT THIS TIME. IV IN PLACE PATENT AND ASYMPTOMATIC R H 22G SALINE LOCKED. SKIN TEAR R AND L BUTTOCKS PRESENT. DRESSING DRY. BED IN LOW POSITION. SAFETY MEASURES IN PLACE. CALL LIGHT WITHIN REACH. WILL CONTINUE TO MONITOR.
[2019-10-06 08:00] VITALS: BP 180/71
[2019-10-06] MEDS: METOPROLOL SUCCINATE 50 MG TABER PO SCH (08:54)
[2019-10-06] MEDS: levETIRAcetam 500 MG TAB PO SCH (08:55)
--- NOTE | 2019-10-06 08:58 | NUR ---
MEDICATIONS ADMINISTERED PER ORDER. PT TOLERATED WELL. DENIES PAIN. WILL CONTINUE TO MONITOR.
[2019-10-06] MEDS ORDERED: ASPIRIN 81 MG TAB.CHEW PO SCH (09:00)
[2019-10-06] MEDS ORDERED: LOSARTAN 50 MG TAB PO SCH (09:00)
--- NOTE | 2019-10-06 10:36 | NUR ---
BLOOD GLUCOSE MONITORED AT THIS TIME. 6 UNITS OF INSULIN COVERAGE GIVEN. NO DISTRESS NOTED. PT DENIES PAIN. WILL CONTINUE TO MONITOR.
[2019-10-06] MEDS: INSULIN LISPRO SLIDING SCALE 100 UNITS/ML VIAL SUBQ PRN (10:37)
[2019-10-06 12:00] VITALS: BP 133/66
--- NOTE | 2019-10-06 12:09 | NUR ---
Mergers And Acquisitions Banker Note: I called patient's son Josef Mancera to obtain information for patient's assessment/discharge plan. However, recording states "at subscriber's request this phone is not accepting incoming calls", no option to leave message. I called patient's daughter Rubi Mancera , no answer, left message.
[2019-10-06] MEDS ORDERED: LEVE750T3 PO (13:17)
[2019-10-06] MEDS ORDERED: INFLUENZA VACCINE QUAD 0.5 ML SYR IMVAC PRN (13:55)
[2019-10-06 14:26] VITALS: BP 134/59
[2019-10-06] MEDS ORDERED: PNEUMOCOCCAL VACCINE 23 MCG/0.5 ML VIAL IMVAC SCH (14:30)
--- NOTE | 2019-10-06 14:30 | NUR ---
SPOKE TO PTS SON RENU THRASHER, INFORMING HIM THAT PT IS READY FOR DISCHARGE.
--- NOTE | 2019-10-06 16:20 | NUR ---
PT READY FOR DISCHARGE AT THIS TIME. AAOX3 IN STABLE CONDITION. DISCHARGE AND FOLLOWUP TEACHINGS GIVEN. PT VERBALIZES UNDERSTANDING. PT GIVEN FLU SHOT PRIOR TO DISCHARGE, PNA VACCINE NOT APPLICABLE. PT RESPIRATIONS EVEN AND UNLABORED ON ROOM AIR. IV SITE REMOVED WITH MINIMAL BLOOD LOSS AND LUMEN INTACT. DISCHARGE PHOTOGRAPHS OF WOUNDS TAKEN. ID BANDS REMOVED. PT BELONGINGS RETURNED. MEDICATIONS RETRIEVED FROM PHARMACY AND GIVEN TO PT. PT ESCORTED OFF UNIT VIA WHEELCHAIR ACCOMPANIED BY PTS SON RENU.
== END 2019-10-06 16:20 | disposition home or self-care (01) | DRG 100 ==
LOC: MED 09:33 → MTU 12:51 → UNDOADMIN 12:51 → MTU 16:40 → OBSVTOIN 18:17
PROVIDERS: ADMIT Internal Medicine; ATTEND Internal Medicine
DX: R56.9 Unspecified convulsions (principal); I21.A1 Myocardial infarction type 2; I48.91 Unspecified atrial fibrillation; E11.9 Type 2 diabetes mellitus without complications; Z87.891 Personal history of nicotine dependence; E78.5 Hyperlipidemia, unspecified; F03.90 Unspecified dementia, unspecified severity, without behavioral disturbance, psychotic disturbance, mood disturbance, and anxiety; G89.29 Other chronic pain; I11.9 Hypertensive heart disease without heart failure; I25.10 Atherosclerotic heart disease of native coronary artery without angina pectoris; I25.2 Old myocardial infarction; Z88.5 Allergy status to narcotic agent; I95.9 Hypotension, unspecified
CPT/HCPCS: 99285; G0378; 36415; 70450; 71045; 80048; 80053; 80305; 81001; 82550; 82948; 84484; 85025; 87081; 93005; 95816; C1758; G0480; G0482; J1650; J1953; Q0092

== ENCOUNTER 2020-09-17 22:36 | Inpatient (IN) | payer OTHER, SELFPAY ==
[~2020-09-17] VITALS: Ht 149.9 cm; Wt 47.6 kg
[~2020-09-17 22:36] MED LIST changes: -ACET-1182 PO; -AD45 TP; -D50SYR IVP; -FLONAS NS; -GLIP5TAB4 PO; -GLUC-805 FS; -HUMSLIDE SUBQ; -IBUP-974 PO; -LAS20I IVP; +LEVE750T3 PO; -ONDA2SOL45 IVP; -PANT40PD7 IVP; -RIVA15TA1 PO; -ROC2I IV; -ZOLP5TAB1 PO
[2020-09-17 23:05] VITALS: BP 110/65
[2020-09-18] VITALS (10 sets, daily range): BP systolic 94–130; BP diastolic 27–60
[2020-09-18] MEDS ORDERED: AMLO5TAB PO (00:17)
[2020-09-18] MEDS ORDERED: CIPR500T4 PO (00:17)
[2020-09-18] MEDS ORDERED: [UNRECOGNIZED DRUG - CODE] PO (00:17)
[2020-09-18] MEDS ORDERED: ATI2I IV (00:17)
[2020-09-18 00:38] LABS: BASOPHILS % (AUTO) 0.2 % (0.0-2.0); EOSINOPHILS # (AUTO) 0.1 K/uL (0-0.4); EOSINOPHILS % (AUTO) 0.3 % (0.0-4.0); HEMATOCRIT 35.5 % (36-48); HEMOGLOBIN 11.2 g/dL (12.0-16.0); LYMPHOCYTES # (AUTO) 1.3 K/uL (2.5-16.5); LYMPHOCYTES % (AUTO) 6.3 % (20.5-51.1); MEAN CORPUSCULAR HEMOGLOBIN 32 pg (27-31); MEAN CORPUSCULAR HGB CONC 32 g/dL (33-37); MEAN CORPUSCULAR VOLUME 99.7 fL (80-94); MONOCYTES # (AUTO) 1.1 K/uL (0.8-1.0); MONOCYTES % (AUTO) 5.4 % (1.7-9.3); NEUTROPHILS # (AUTO) 17.5 K/uL (1.8-7.7); NEUTROPHILS % (AUTO) 87.8 % (42.2-75.2); PLATELET COUNT (AUTO) 383 K/uL (140-450); RED BLOOD CELL COUNT(AUTO) 3.56 MIL/uL (4.20-5.40); RED CELL DISTRIBUTION WIDTH 16.1 % (11.6-13.7); WHITE BLOOD COUNT (AUTO) 19.9 K/uL (4.8-10.8)
[2020-09-18 01:00] LABS: PROTHROMBIN TIME 10.7 secs (10.8-13.4)
[2020-09-18 01:09] LABS: ALBUMIN 2.2 g/dL (3.4-5.0); ANION GAP 21.6 (8-16); ASPARTATE AMINOTRANSFERASE 20 U/L (15-37); CARBON DIOXIDE 19.1 mmol/L (21-32); CHLORIDE 115 mmol/L (98-107); GLUCOSE 92 mg/dL (74-106); POTASSIUM 5.7 mmol/L (3.5-5.1); SODIUM SERUM 150 mmol/L (136-145); TOTAL BILIRUBIN 0.6 mg/dL (0.0-1.0)
[2020-09-18 01:14] LABS: CREATININE 4.7 mg/dL (0.6-1.3); UREA NITROGEN, BLOOD 84 mg/dL (7-18)
[2020-09-18] MEDS ORDERED: NACL 0.9% 1,000 ML IV ONE ×2 (01:25)
[2020-09-18] MEDS ORDERED: VANCOMYCIN 1,000 MG in DEXTROSE 5% 250 ML IV ONE ×4 (01:25)
[2020-09-18] MEDS ORDERED: PIPERACILLIN/TAZOBACTAM 3.375 GM in DEXTROSE 5% 50 ML IV ONE ×4 (01:25)
[2020-09-18] MEDS ORDERED: PIPERACILLIN/TAZOBACTAM 3.375 GM VIAL IV ONE (01:38)
[2020-09-18] MEDS ORDERED: VANCOMYCIN 1,000 MG VIAL ONE (01:38)
[2020-09-18] MEDS ORDERED: DEXTROSE 50% 50 ML SYR IVP PRN (02:05)
[2020-09-18] MEDS ORDERED: NACL 0.45% 1,000 ML IV SCH (02:05)
[2020-09-18] MEDS ORDERED: ONDANSETRON 4 MG/2 ML VIAL IVP PRN (02:05)
[2020-09-18] MEDS ORDERED: ACETAMINOPHEN 325 MG TAB PO PRN (02:05)
[2020-09-18] MEDS ORDERED: LORazepam 2 MG/ML VIAL IVP PRN (02:05)
[2020-09-18] MEDS ORDERED: MORPHINE SULFATE 2 MG/ML SYR IVP PRN (02:05)
[2020-09-18] MEDS ORDERED: INSULIN LISPRO SLIDING SCALE 100 UNITS/ML VIAL SUBQ PRN (02:05)
[2020-09-18] MEDS ORDERED: HYDROcodone/APAP 5/325 MG 1 TAB TAB PO PRN (02:05)
[2020-09-18] MEDS ORDERED: cefTRIAXone 1,000 MG VIAL ONE (04:24)
[2020-09-18] MEDS: BLOOD GLUCOSE MONITORING 1 DEV DEV FS SCH ×4 (08:01→20:38)
[2020-09-18 11:13] LABS: GLUCOSE 115 mg/dL (74-106)
[2020-09-18 11:22] LABS: CARBON DIOXIDE 17.4 mmol/L (21-32); CHLORIDE 115 mmol/L (98-107); CREATININE 4.3 mg/dL (0.6-1.3); POTASSIUM 5.4 mmol/L (3.5-5.1); SODIUM SERUM 147 mmol/L (136-145); UREA NITROGEN, BLOOD 76 mg/dL (7-18)
[2020-09-18] MEDS: SODIUM BICARBONATE 8.4% 50 MEQ in DEXTROSE 5% 1,000 ML IV SCH (12:23)
[2020-09-18 12:40] LABS: APPEARANCE,URINE HAZY (CLEAR); BILIRUBIN,URINE 1+ (NEGATIVE); BLOOD, URINE 1+ (NEGATIVE); COLOR,URINE YELLOW (YELLOW); LEUKOCYTE ESTERASE ,URINE TRACE (NEGATIVE); NITRITE, URINE NEGATIVE (NEGATIVE); UGLUCOSE NEGATIVE (NEGATIVE)
[2020-09-18] MEDS: PIPERACILLIN/TAZOBACTAM 2.25 GM in DEXTROSE 5% 50 ML IV SCH ×2 (12:55→20:35)
[2020-09-18 13:07] LABS: RBC,URINE NONE SEEN /HPF (0-5); YEAST,URINE Moderate /HPF (None Seen)
[2020-09-18 17:01] LABS: SODIUM SERUM 146 mmol/L (136-145)
[2020-09-18 17:02] LABS: CHLORIDE 114 mmol/L (98-107)
[2020-09-18 17:03] LABS: ANION GAP 19.8 (8-16); CARBON DIOXIDE 17.2 mmol/L (21-32); GLUCOSE 109 mg/dL (74-106)
[2020-09-18 17:04] LABS: CREATININE 3.9 mg/dL (0.6-1.3)
[2020-09-18 17:05] LABS: UREA NITROGEN, BLOOD 74 mg/dL (7-18)
[2020-09-19] VITALS (11 sets, daily range): BP systolic 89–151; BP diastolic 37–96
[2020-09-19] MEDS: Z-GUARD PASTE TP SCH ×2 (03:30→13:45)
[2020-09-19] MEDS: PIPERACILLIN/TAZOBACTAM 2.25 GM in DEXTROSE 5% 50 ML IV SCH ×3 (04:26→21:08)
[2020-09-19 05:27] LABS: HEMATOCRIT 28.4 % (36-48); HEMOGLOBIN 9.3 g/dL (12.0-16.0); MEAN CORPUSCULAR HEMOGLOBIN 33 pg (27-31); MEAN CORPUSCULAR HGB CONC 33 g/dL (33-37); MEAN CORPUSCULAR VOLUME 99.3 fL (80-94); PLATELET COUNT (AUTO) 275 K/uL (140-450); RED BLOOD CELL COUNT(AUTO) 2.86 MIL/uL (4.20-5.40); RED CELL DISTRIBUTION WIDTH 15.8 % (11.6-13.7); WHITE BLOOD COUNT (AUTO) 14.5 K/uL (4.8-10.8)
[2020-09-19 06:18] LABS: ALBUMIN 1.4 g/dL (3.4-5.0); ANION GAP 17.1 (8-16); ASPARTATE AMINOTRANSFERASE 18 U/L (15-37); CARBON DIOXIDE 17.3 mmol/L (21-32); CHLORIDE 113 mmol/L (98-107); CREATININE 3.5 mg/dL (0.6-1.3); GLUCOSE 151 mg/dL (74-106); POTASSIUM 4.4 mmol/L (3.5-5.1); SODIUM SERUM 143 mmol/L (136-145); TOTAL BILIRUBIN 0.5 mg/dL (0.0-1.0)
[2020-09-19 06:38] LABS: UREA NITROGEN, BLOOD 68 mg/dL (7-18)
[2020-09-19 06:39] LABS: MAGNESIUM 1.6 mg/dL (1.8-2.4); PHOSPHORUS 4.6 mg/dL (2.5-4.9)
[2020-09-19 06:51] LABS: LYMPHOCYTES % (MANUAL) 5 % (20-46); MONOCYTES % (MANUAL) 5 % (5-12)
[2020-09-19] MEDS: SODIUM BICARBONATE 8.4% 50 MEQ in DEXTROSE 5% 1,000 ML IV SCH (06:58)
[2020-09-19] MEDS: BLOOD GLUCOSE MONITORING 1 DEV DEV FS SCH ×4 (08:00→21:28)
[2020-09-19] MEDS: PANTOPRAZOLE 40 MG INJ VIAL IVP SCH (09:33)
[2020-09-19] MEDS ORDERED: ZOS2.25PM IV (14:50)
[2020-09-19] MEDS ORDERED: MAG SULF 2000 MG/WATER PREMIX 50 ML IV SCH (17:00)
[2020-09-20] VITALS: BP 120/56
[2020-09-20] MEDS: Z-GUARD PASTE TP SCH ×2 (01:21→13:12)
[2020-09-20] MEDS: SODIUM BICARBONATE 8.4% 50 MEQ in DEXTROSE 5% 1,000 ML IV SCH ×2 (01:21→15:35)
[2020-09-20] MEDS: THERAHONEY GEL 42.5 GM TP SCH ×2 (01:21→13:12)
[2020-09-20 04:00] VITALS: BP 111/48
[2020-09-20 05:23] LABS: BASOPHILS # (AUTO) 0.1 K/uL (0.00-0.22); BASOPHILS % (AUTO) 0.3 % (0.0-2.0); EOSINOPHILS # (AUTO) 0.2 K/uL (0-0.4); EOSINOPHILS % (AUTO) 1.1 % (0.0-4.0); HEMATOCRIT 30.5 % (36-48); LYMPHOCYTES # (AUTO) 0.7 K/uL (2.5-16.5); LYMPHOCYTES % (AUTO) 4.3 % (20.5-51.1); MEAN CORPUSCULAR HEMOGLOBIN 33 pg (27-31); MEAN CORPUSCULAR HGB CONC 33 g/dL (33-37); MEAN CORPUSCULAR VOLUME 100.1 fL (80-94); MONOCYTES # (AUTO) 0.9 K/uL (0.8-1.0); MONOCYTES % (AUTO) 5.4 % (1.7-9.3); NEUTROPHILS # (AUTO) 14.8 K/uL (1.8-7.7); NEUTROPHILS % (AUTO) 88.9 % (42.2-75.2); PLATELET COUNT (AUTO) 308 K/uL (140-450); RED BLOOD CELL COUNT(AUTO) 3.05 MIL/uL (4.20-5.40); RED CELL DISTRIBUTION WIDTH 15.2 % (11.6-13.7); WHITE BLOOD COUNT (AUTO) 16.6 K/uL (4.8-10.8)
[2020-09-20] MEDS: PIPERACILLIN/TAZOBACTAM 2.25 GM in DEXTROSE 5% 50 ML IV SCH ×2 (05:33→13:10)
[2020-09-20 05:52] LABS: ANION GAP 18.4 (8-16); CARBON DIOXIDE 18.9 mmol/L (21-32); CHLORIDE 107 mmol/L (98-107); GLUCOSE 144 mg/dL (74-106); POTASSIUM 4.3 mmol/L (3.5-5.1); SODIUM SERUM 140 mmol/L (136-145); UREA NITROGEN, BLOOD 60 mg/dL (7-18)
[2020-09-20 06:50] LABS: MAGNESIUM 2.3 mg/dL (1.8-2.4)
[2020-09-20 06:51] LABS: PHOSPHORUS 3.8 mg/dL (2.5-4.9)
[2020-09-20] MEDS: BLOOD GLUCOSE MONITORING 1 DEV DEV FS SCH ×2 (07:30→12:20)
[2020-09-20 08:00] VITALS: BP 140/63
[2020-09-20] MEDS: PANTOPRAZOLE 40 MG INJ VIAL IVP SCH (08:44)
[2020-09-20 12:00] VITALS: BP 147/61
[2020-09-20] MEDS ORDERED: ZOS2.25PM IV (16:08)
[2020-09-20] MEDS ORDERED: FLU VACCINE QS2020-21 0.5 ML SYR IMVAC ONE (16:21)
== END 2020-09-20 16:42 | DRG 871 ==
LOC: MED 22:36 → MMU 09-18 02:10 → UNDOADMIN 09-18 02:10 → MMU 09-18 02:33 → MIC 09-18 03:02 → MTU 09-20 06:52
PROVIDERS: ADMIT Hospitalist; ATTEND Hospitalist
DX: A41.9 Sepsis, unspecified organism (principal); G93.41 Metabolic encephalopathy; N39.0 Urinary tract infection, site not specified; E87.0 Hyperosmolality and hypernatremia; N17.9 Acute kidney failure, unspecified; I13.0 Hypertensive heart and chronic kidney disease with heart failure and stage 1 through stage 4 chronic kidney disease, or unspecified chronic kidney disease; R65.20 Severe sepsis without septic shock; E86.0 Dehydration; E87.5 Hyperkalemia; F03.90 Unspecified dementia, unspecified severity, without behavioral disturbance, psychotic disturbance, mood disturbance, and anxiety; I50.9 Heart failure, unspecified; F41.9 Anxiety disorder, unspecified; Z66 Do not resuscitate; N18.9 Chronic kidney disease, unspecified; Z20.828 Contact with and (suspected) exposure to other viral communicable diseases; Z88.5 Allergy status to narcotic agent; Z80.59 Family history of malignant neoplasm of other urinary tract organ; Z23 Encounter for immunization
CPT/HCPCS: 36415; 70450; 71045; 80048; 80053; 81001; 82550; 82553; 82948; 83605; 83735; 83874; 83880; 84100; 84484; 85025; 85610; 85730; 87040; 87081; 87086; 92610; 93005; 96365; 96367; 99291; C9113; J0696; J1644; J2060; J2270; J2543; J3370; J3475; J3490; J7030; J7060; Q0092